=== PATIENT | female | born 1940 | race African-American/Black ===

== ENCOUNTER 2021-07-15 16:01 | Emergency (ER) | payer OTHER ==
--- OUTSIDE RECORDS SUMMARY | 2021-07-15 16:31 | XMS REPORT | Continuity of Care Document ---
:1940 Author Organization [facility] t Address [address] [place] [address] Care Team Providers Name Role Phone Dave_S Attending Clinician Unavailable Dave_S Admitting Clinician Unavailable Payers Payer Name Policy Type Policy Number Effective Date Expiration Date S lizeth [facility] [place] - [id number] 2021 [employer] 00:00:00 (MEDICARE REPLACEMENT/ADVANT AGE - HMO) Problems Condition Condition Condition Status Onset Resolution Last Treating Co mments Source Name Details Category Date Date Treatment Clinician Date SNOMED CT SNOMED CT Problem Active [facility] Concept Concept 7-04 Family 00:00: Practic 00 e 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-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 Rhinitis 00:00: Practi c 00 e Clinical Clinical Problem Active [facility] finding Finding 4-18 Family 00:00: Practic 00 e Renal Renal Problem Active [facility] disorder Disorder 8-01 Family due to Due to 00:00: Practic type 2 Type 2 00 e diabetes Diabetes mellitus Mellitus Peripheral Peripheral Problem Active [facility] vascular Vascular 8- Family disease Disease 00:00: Practic 00 e Chronic Chronic Problem Active [facility] kidney Kidney 8-01 Family disease Disease 00:00: Practic stage 3 Stage 3 00 e Chronic Chronic Problem Active [facility] kidney Kidney 8- Family disease Disease 00:00: Practic stage 3A Stage 3a 00 e Low back Low Back Problem Active 2018-05 [facility] pain Pain 2-18 Family 00:00: Practic 00 e Type 2 Type 2 Problem Active 2017-05 [facility] diabetes Diabetes 0-21 Family mellitus Mellitus 00:00: Practi c without without 00 e complicati Complicati on on Solitary Solitary Problem Active [facility] nodule of Nodule of 7-06 Fami ly lung Lung 00:00: Practic 00 e History of History of Problem Active 2016-05 [facility] polyp of Polyp of 1-11 Family colon Colon 00:00: Practic 00 e 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[facility] vein Vein 1-11 Family appearance Appearance 00:00: Pr actic - finding - Finding 00 e Fredrickso Fredrickso Problem Active 2015-05 [facility] n type IIa n Type IIa 2-17 [facility] 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 00 e Hyperchole Hyperchole Problem Active 2015-05 [facility] sterolemia sterolemia 2-17 Fa richard 00:00: Practic 00 e Disorder Disorder Problem Active 2015-05 [facility] of lung of Lung 0-17 Family 00:00: Practic 00 e Disorder Disorder Problem Active 2015-05 [facility] of of 0-17 Family respirator Respirator 00:00: Pr actic y system y System 00 e Anemia Anemia Problem Active [facility] 9-06 Family 00:00: Practic 00 e 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[facility] essential Essential 06-13 Fami ly hypertensi Hypertensi 00:00: Pr actic on on 00 e Hypertensi Hypertensi Problem Active [facility] ve ve 2-09 Family disorder Disorder 00:00: Practi c 00 e Rheumatoid Rheumatoid Problem Active [facility] arthritis Arthritis -09 Fami ly 00:00: Practic 00 e 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 Arterial 1-11 Family finding Finding 00:00: Practic 00 e Allergies, Adverse Reactions, Alerts Allergy Allergy Status Severity Reaction(s) Onset Inactive Treating Comm ents Source Name Type Date Date Clinician Meloxica Allergy Active [facility] m to 1-12 Family substanc 00:00: Practic e 00 e Codeine Allergy Active [facility] to 8-27 Family substanc 00:00: Practic e 00 e Social History Smoking Status Start Date Stop Date Source Current Every Day Smoker [facility] Family Practice Medications Ordered Filled Start Stop Current Ordering Indication Dosage Frequency Signature Comments Components Source Medication Medication Date Date Medication? Clinician (SIG) Name Name folic acid folic acid No folic acid [facility] metformin metformin No 1 TID metformin [facility] 500 mg 500 mg 500 mg Family tablet Take tablet Take tablet Practic 1 tablet 3 1 tablet 3 Take 1 e times a day times a day tablet 3 by oral by oral times a route. route. day by oral route. methotrexat methotrexat No methotrexa [facility] rosuvastati rosuvastati No 1 Q1D rosuvastat [facility] n 20 mg n 20 mg in 20 mg Famil y tablet Take tablet Take tablet Practic 1 tablet 1 tablet Take 1 e every day every day tablet by oral by oral every day route. route. by oral route. Immunizations Ordered Immunization Filled Immunization Date Status Commen ts Source Name Name COVID-19 COVID-19 2020-07-21 Completed [facility] (SARS-COV-2) (SARS-COV-2) 00:00:00 Practice vaccine, unspecified vaccine, unspecified Influenza, Influenza, 2018-02-12 Completed [facility] injectable, MDCK, injectable, MDCK, 00:00:00 Practice quadrivalent quadrivalent influenza, seasonal, influenza, seasonal, 2016-02-19 Completed [facility] injectable, injectable, 00:00:00 Practice preservative free preservative free pneumococcal pneumococcal 2015-08-28 Completed [facility] richard conjugate PCV 13 conjugate PCV 13 00:00:00 Pr actice influenza, seasonal, influenza, seasonal, 2008-02-23 Completed [facility] injectable injectable 00:00:00 Practice Vital Signs Vital Name Observation Time Observation Value Comments Source BP Diastolic 2021-05-03 00:00:00 68 mm[Hg] [facility] Height 2021-05-03 00:00:00 67 [in_i] [facility] BMI (Body Mass 2021-05-03 00:00:00 32.3 kg/m2 [facility] Index) Practice BP Systolic 2021-05-03 00:00:00 104 mm[Hg] [facility] Body Weight 2021-05-03 00:00:00 206 [lb_av] [facility] Procedures Procedure Date / Time Performed Performing Clinician Sourc e Complete Repair of [facility] Rotator Cuff [facility] Plan of Care Planned Activity Planned Date Details Comments Source Diagnostic Test 2021-05-03 CBC w/ auto diff [code = [facility] Pending 00:00:00 CBC w/ auto diff] Practice Diagnostic Test 2021-05-03 iron + TIBC + ferritin, [facility] Pending 00:00:00 serum [code = iron + Practic e TIBC + ferritin, serum] Diagnostic Test 2021-05-03 vitamin B12 + folate, [facility] Family Pending 00:00:00 serum or blood [code = Pract ice vitamin B12 + folate, serum or blood] Diagnostic Test 2021-05-03 retic count, blood [code [facility] Pending 00:00:00 = retic count, blood] Practi ce Diagnostic Test 2021-05-03 protein electrophoresis [facility] Pending 00:00:00 panel, serum or plasma Pract ice [code = protein electrophoresis panel, serum or plasma] Diagnostic Test 2021-05-03 electrophoresis panel, [facility] Family Pending 00:00:00 urine [code = Practice electrophoresis panel, urine] Diagnostic Test 2021-05-03 HbA1c (hemoglobin A1c), [facility] Pending 00:00:00 blood [code = HbA1c Practice (hemoglobin A1c), blood] Diagnostic Test 2021-05-03 microalbumin/creatinine, [facility] Pending 00:00:00 mass ratio, urine [code Prac kalen = microalbumin/creatinine, mass ratio, urine] Diagnostic Test 2021-05-03 CMP, serum or plasma Vill age Family Pending 00:00:00 [code = CMP, serum or Practi ce plasma] Encounters Start End Encounter Admission Attending Care Care Encounter Source Date/Time Date/Time Type Type Clinicians Facility Department ID 2021-06-13 2021-06-13 Outpatient Dave_S VFP VFP [id number] [facility] 03:35:00 03:35:00 [id number] Family Practic e 2021-05-14 2021-05-14 Outpatient Dave_S VFP VFP [id number] [facility] 06:33:00 06:33:00 [id number] Family Practic e 2021-05-03 2021-05-03 Outpatient Dave_S VFP VFP [id number] [facility] 01:15:00 01:15:00 [id number] Family Practic e 2021-05-03 2021-05-03 Outpatient Dave_S VFP VFP [id number] - [facility] 01:15:00 01:15:00 [id number] Family Practic e 2021-05-03 2021-05-03 Arthur VFP [place] - [id number] [facility] 00:00:00 00:00:00 Marisela Beth [facility] DO: [address] Medical - Pract ic Fm [address] [facility], (WAG) [place] [address] , Ph. 2021-04-25 2021-04-25 Outpatient Kirit_Marcia VFP VFP [id number] [facility] 06:57:00 06:57:00 [id number] Family Practic e Results This patient has no known results.
[2021-07-15 17:47] LABS: Absolute Lymphocytes (CBC) 1.1 K/uL (0.7-4.9); Hematocrit 33.9 % (36.0-45.0); Lymphocytes % 17.6 % (15.3-44.8); MPV 8.8 fL (7.6-11.3); RBC Red Blood Cell Count 3.81 M/uL (3.86-4.86)
[2021-07-15 17:54] LABS: Urine Blood Trace-lysed (Negative); Urine Glucose Negative (Negative); Urine Protein Negative (Negative); Urine Specific Gravity 1.025 (1.005-1.030)
[2021-07-15 18:04] LABS: ALT/SGPT 17 U/L (12-78); AST/SGOT 20 U/L (15-37); Albumin 3.1 g/dL (3.4-5.0); Alkaline Phosphatase 68 U/L (45-117); BUN Blood Urea Nitrogen 19 mg/dL (7-18); Bicarbonate 26 mmol/L (21-32); Bilirubin Direct < 0.1 mg/dL (0-0.2); Bilirubin Total 0.3 mg/dL (0.2-1.0); Glucose Level 103 mg/dL (74-106); Lipase 132 U/L (73-393); Potassium 4.4 mmol/L (3.5-5.1); Protein, Total 8.3 g/dL (6.4-8.2); Sodium Level 139 mmol/L (136-145)
[2021-07-15] MEDS ORDERED: NA CHLORIDE 0.9% 500 ML ONE (18:38)
--- NOTE | 2021-07-15 18:53 | RAD REPORT ---
EXAM DESCRIPTION: CT - Chest For Pe Angio - 07/15/2021 6:27 pm CLINICAL HISTORY: left sided flank pain, back pain COMPARISON: CT ABD PELVIS W CONTRAST dated 06/23/2014No comparisonsNo comparisons FINDINGS: Chest Wall: No suspicious thyroid nodules or pathologic lymphadenopathy. Lungs: No acute abnormality. Pleura: No significant effusions or pneumothorax. Mediastinum/brennan: No pathologic lymphadenopathy. Pulmonary arteries/Aorta: No filling defect identified. No aortic aneurysm. Enlarged main pulmonary a rtery may indicate pulmonary artery hypertension. Heart: No significant pericardial effusion. Normal heart size. Multi-vessel coronary artery disease. Mitral valve calcifications. Cardiomegaly. Upper abdomen: No acute abnormality. Bones: No acute abnormality. All CT scans are performed using dose optimization technique as appropriate and may include automated exposure control or mA/KV adjustment according to patient size. IMPRESSION: Negative for pulmonary embolism. No other acute findings are present within the chest.
[2021-07-15 18:54] LABS: Urine Bacteria >50 /HPF (<20)
[2021-07-15 18:55] LABS: Urine RBC <5 /HPF (NONE SEEN)
--- NOTE | 2021-07-15 18:56 | RAD REPORT ---
EXAM DESCRIPTION: CTAbdomen Pelvis W Contrast - 07/15/2021 6:27 pm CLINICAL HISTORY: FLANK PAIN COMPARISON: No comparisons TECHNIQUE: CT of the abdomen and pelvis was performed. All CT scans are performed using dose optimization technique as appropriate and may include automated exposure control or mA/KV adjustment according to patient size. FINDINGS: Lower chest: Mitral valve calcifications versus prosthesis. Cardiomegaly. Liver: No acute abnormality or suspicious lesions. Biliary: Cholecystectomy Stomach: No significant focal abnormality. Duodenum: No significant focal abnormality. Pancreas: No significant abnormality. Spleen: No significant abnormality. Adrenal: No suspicious lesions. Kidney/ureter: No hydronephrosis. No renal calculi. Retroperitoneum: No retroperitoneal adenopathy. Vascular: No aneurysm. Atherosclerosis . Bowel: No significant focal abnormality. No appendix identified. No secondary signs of acute appendic itis. Peritoneum: No ascites or free air. Bladder: Grossly unremarkable. Reproductive: No adnexal masses. Small calcified uterine fibroids. Bones: No acute fracture. Grade 1 anterolisthesis of L4 on L5. Other: n/a IMPRESSION: No acute intra-abdominal or pelvic finding. Incidental findings as noted above.
--- NOTE | 2021-07-15 19:32 | ER ---
Nurse's Notes [facility] Name: Elizabeth Bills Age: 80 yrs Sex: Female : 1940 Arrival Date: 07/15/2021 Time: 16:07 Bed 6 Private MD: Diagnosis: Flank Pain Presentation: 07/15 16:40 Chief complaint: Patient states: Left sided flank pain that is radiating to the back ww that started about 2 weeks ago. Also having right sided neck pain. Chief complaint:. Coronavirus screen: Vaccine status: Patient reports receiving the 2nd dose of the covid vaccine. Client denies travel out of the [place] in the last 14 days. Ebola Screen: Patient denies travel to an Ebola-affected area in the 21 days before illness onset. Initial Sepsis Screen: Does the patient meet any 2 criteria? No. Patient's initial sepsis screen is negative. Does the patient have a suspected source of infection? No. Patient's initial sepsis screen is negative. Risk Assessment: Do you want to hurt yourself or someone else? Patient reports no desire to harm self or others. Onset of symptoms is unknown. 16:40 Method Of Arrival: Ambulatory ww 16:40 Acuity: LYNNETTE 3 ww Triage Assessment: 16:42 General: Appears in no apparent distress. Behavior is calm, cooperative. Pain: ww Complains of pain in scalp and abdomen. Neuro: No deficits noted. Level of Consciousness is awake, alert, obeys commands, Oriented to person, place, time, situation, Moves all extremities. Gait is steady, Speech is normal. Cardiovascular: Patient's skin is warm and dry. Respiratory: Airway is patent Respiratory effort is even, unlabored, Respiratory pattern is regular, symmetrical. GI: No signs and/or symptoms were reported involving the gastrointestinal system. : No signs and/or symptoms were reported regarding the genitourinary system. Derm: No signs and/or symptoms reported regarding the dermatologic system. Historical: - Allergies: 16:42 Codeine; ww - Home Meds: 16:42 Metformin Oral [Active]; ww - PMHx: 16:42 Rheumatoid arthritis; Diabetes mellitus; ww - PSHx: 16:42 tubual; Appendectomy; rotator cuff; Cholecystectomy; ww - Immunization history:: Adult Immunizations up to date. - Social history:: Smoking status: Patient reports the use of cigarette tobacco products, smokes one-half pack cigarettes per day. Screenin:44 Abuse screen: Denies threats or abuse. Denies injuries from another. Nutritional ww screening: No deficits noted. Tuberculosis screening: No symptoms or risk factors identified. 17:30 Fall Risk IV access (20 points). Total Larkin Fall Scale indicates No Risk (0-24 pts). jl7 Assessment: 17:00 General: Appears in no apparent distress. uncomfortable, Behavior is calm, cooperative, jl7 appropriate for age. Pain: Complains of pain in posterior aspect of left lateral abdomen Pain does not radiate. Pain currently is 8 out of 10 on a pain scale. Pain: Complains of pain in right sternocleidomastoid Pain does not radiate. Pain currently is 8 out of 10 on a pain scale. Neuro: Level of Consciousness is awake, alert, obeys commands, Oriented to person, place, time, situation. Cardiovascular: Patient's skin is warm and dry. Respiratory: Airway is patent Respiratory effort is even, unlabored, Respiratory pattern is regular, symmetrical, Denies cough, pain with respiration. GI: Patient currently denies diarrhea, nausea, vomiting. : Denies burning with urination, pain with urination. Derm: Skin is pink, warm \T\ dry. 18:00 Reassessment: Patient appears in no apparent distress at this time. No changes from jl7 previously documented assessment. Patient and/or family updated on plan of care and expected duration. Pain level reassessed. Patient is alert, oriented x 3, equal unlabored respirations, skin warm/dry/pink. 18:25 Reassessment: Pt returned from CT. jl7 Vital Signs: 16:40 BP 132 / 60; Pulse 95; Resp 18; Temp 97.7; Pulse Ox 99% ; Weight 98.88 kg; Height 5 ft. ww 6 in. (167.64 cm); Pain 8/10; 18:41 BP 134 / 60; Pulse 82; Resp 15; Pulse Ox 100% ; jl7 20:09 BP 132 / 72; Pulse 84; Resp 18; Pulse Ox 100% on R/A; kd3 16:40 Body Mass Index 35.18 (98.88 kg, 167.64 cm) ww ED Course: 16:07 Patient arrived in ED. ds1 16:42 Triage completed. ww 16:42 Arm band placed on right wrist. ww 16:52 Patient placed in an exam room, on a stretcher. ll1 17:12 Xiomy Stallworth, GIOVANNI is Primary Nurse. jl7 17:20 Leandro Turcios PA is PHCP. jmm 17:20 Isaac Lora MD is Attending Physician. jmm 17:30 Patient has correct armband on for positive identification. Call light in reach. jl7 17:30 Initial lab(s) drawn, by me, sent to lab. Urine collected: clean catch specimen, jl7 cloudy, keila colored. Inserted saline lock: 20 gauge in right antecubital area, using aseptic technique. Blood collected. 18:27 CT Abd/Pelvis - IV Contrast Only In Process Unspecified. EDMS 18:27 CT Chest For PE Angio In Process Unspecified. EDMS 20:09 No provider procedures requiring assistance completed. IV discontinued, intact, kd3 bleeding controlled, No redness/swelling at site. Pressure dressing applied. Administered Medications: 18:01 Not Given (Patient Refused): morphine 2 mg IVP once; RASS on ADMIN: Combtv4, Very jl7 Agttd3, Agttd2, Rstlss1, AlertClm0, Drwsy-1, Lt Sdtn-2, Mod Sdtn-3, Dp Sdtn-4, UnArsble-5 18:01 Not Given (Patient Refused): Zofran (Ondansetron) 4 mg IVP once; over 2 minutes jl7 18:47 Drug: NS 0.9% 500 ml Route: IV; Rate: bolus; Site: right antecubital; jl7 20:11 Follow up: IV Status: Completed infusion kd3 20:08 Drug: Tylenol 650 mg Route: PO; kd3 20:11 Follow up: Response: No adverse reaction kd3 20:08 Drug: Flexeril (cyclobenzaprine) 10 mg Route: PO; kd3 20:11 Follow up: Response: No adverse reaction kd3 Outcome: 19:31 Discharge ordered by . jm 20:09 Discharged to home ambulatory. kd3 20:09 Condition: stable 20:09 Discharge instructions given to patient, Instructed on discharge instructions, follow up and referral plans. medication usage, Demonstrated understanding of instructions, follow-up care, medications, Prescriptions given X 2. 20:12 Patient left the ED. kd3 Addendum: 07/18/2021 12:16 Addendum: Culture Results: Positive urine culture. Bacteria is resistant to, has a a5 intermediate sensitivity, or is not tested against prescribed antibiotics. Report given to GLENDA for further evaluation and then to brick chimney supervisor for follow up with patient. Phone call Attempt #1 called to check on patient and left voicemail. Signatures: Dispatcher [employer] EDMS Leandro Turcios PA PA jmm Sanford, Demi ds1 Juliana Roberson, RN RN aa5 Xiomy Stallworth RN RN jl7 Armaan Maynard RN RN ll1 Lily Chung RN RN kd3 Rola Ortega, RN RN ww Corrections: (The following items were deleted from the chart) 07/15 16:45 16:40 Pulse 95bpm; Resp 18bpm; Pulse Ox 99%; Temp 97.7F; 98.88 kg; Height 5 ft. 6 in.; ww BMI: 35.1; Pain 8/10; ww 16:45 16:40 Acuity: LYNNETTE 4 ww ww
--- NOTE | 2021-07-15 19:33 | EDPHYS ---
Physician Documentation [facility] Name: Elizabeth Bills Age: 80 yrs Sex: Female : 1940 Arrival Date: 07/15/2021 Time: 16:07 Bed 6 Private MD: ANUEL Physician Isaac Lora HPI: 07/15 17:25 This 80 yrs old Black Female presents to ER via Ambulatory with complaints of Side jmm Pain, Neck Pain. 17:25 The patient complains of pain in the left flank. Onset: The symptoms/episode jmm began/occurred gradually, 1 week(s) ago. Modifying factors: The symptoms are alleviated by nothing. the symptoms are aggravated by movement, palpation/percussion. Associated signs and symptoms: Pertinent negatives: diarrhea, dizziness, fever, headache, hematuria, nausea, pain radiating to the lower extremities, vomiting. The patient has not experienced similar symptoms in the past. Historical: - Allergies: 16:42 Codeine; ww - Home Meds: 16:42 Metformin Oral [Active]; ww - PMHx: 16:42 Rheumatoid arthritis; Diabetes mellitus; ww - PSHx: 16:42 tubual; Appendectomy; rotator cuff; Cholecystectomy; ww - Immunization history:: Adult Immunizations up to date. - Social history:: Smoking status: Patient reports the use of cigarette tobacco products, smokes one-half pack cigarettes per day. ROS: 17:25 Constitutional: Negative for fever, chills, and weight loss, Cardiovascular: Negative jmm for chest pain, palpitations, and edema, Respiratory: Negative for shortness of breath, cough, wheezing, and pleuritic chest pain, Abdomen/GI: Negative for abdominal pain, nausea, vomiting, diarrhea, and constipation. 17:25 Back: Positive for pain with movement. 17:25 All other systems are negative. Exam: 17:25 Constitutional: This is a well developed, well nourished patient who is awake, alert, jmm and in no acute distress. Head/Face: atraumatic. Eyes: EOMI, no conjunctival erythema appreciated ENT: Moist Mucus Membranes Neck: Trachea midline, Supple Chest/axilla: Normal chest wall appearance and motion. Cardiovascular: Regular rate and rhythm. No edema appreciated Respiratory: Normal respirations, no respiratory distress appreciated Abdomen/GI: Non distended, soft 17:25 Skin: General appearance color normal MS/ Extremity: Moves all extremities, no obvious deformities appreciated, no edema noted to the lower extremities Neuro: Awake and alert Psych: Behavior is normal, Mood is normal, Patient is cooperative and pleasant 17:25 Back: CVA tenderness, that is mild, is noted on the left. Vital Signs: 16:40 BP 132 / 60; Pulse 95; Resp 18; Temp 97.7; Pulse Ox 99% ; Weight 98.88 kg; Height 5 ft. ww 6 in. (167.64 cm); Pain 8/10; 18:41 BP 134 / 60; Pulse 82; Resp 15; Pulse Ox 100% ; jl7 20:09 BP 132 / 72; Pulse 84; Resp 18; Pulse Ox 100% on R/A; kd3 16:40 Body Mass Index 35.18 (98.88 kg, 167.64 cm) ww MDM: 17:25 Patient medically screened. ludwig 19:31 Data reviewed: vital signs, nurses notes. Counseling: I had a detailed discussion with richy the patient and/or guardian regarding: the historical points, exam findings, and any diagnostic results supporting the discharge/admit diagnosis, lab results, radiology results, the need for outpatient follow up, to return to the emergency department if symptoms worsen or persist or if there are any questions or concerns that arise at home. ED course: She is alert nontoxic in appearance NAD. No signs of respiratory distress. UA did reveal signs of urinary tract infection. Will treat with oral antibiotics. Patient otherwise given strict return precautions. Patient understood agrees plan of care. 07/15 17:26 Order name: Basic Metabolic Panel; Complete Time: 18:05 [facility] 07/15 17:26 Order name: CBC with Diff; Complete Time: 17:54 [facility] 07/15 17:26 Order name: Hepatic Function; Complete Time: 18:05 [facility] 07/15 17:26 Order name: Lipase; Complete Time: 18:05 [facility] 07/15 17:54 Order name: Urine Dipstick-Ancillary; Complete Time: 18:01 [facility] 07/15 17:58 Order name: Urine Microscopic Only ll1 07/15 17:27 Order name: CT Chest For PE Angio; Complete Time: 19:00 [facility] 07/15 17:59 Order name: Urine Microscopic Only; Complete Time: 19:00 [facility] 07/15 18:02 Order name: CT Abd/Pelvis - IV Contrast Only; Complete Time: 19:00 [facility] 07/15 18:56 Order name: Urine Culture [facility] 07/15 17:26 Order name: IV Saline Lock; Complete Time: 18:01 [facility] 07/15 17:26 Order name: Labs collected and sent; Complete Time: 18:01 [facility] 07/15 17:26 Order name: Urine Dipstick-Ancillary (obtain specimen); Complete Time: 18:01 [facility] Administered Medications: 18:01 Not Given (Patient Refused): morphine 2 mg IVP once; RASS on ADMIN: Combtv4, Very jl7 Agttd3, Agttd2, Rstlss1, AlertClm0, Drwsy-1, Lt Sdtn-2, Mod Sdtn-3, Dp Sdtn-4, UnArsble-5 18:01 Not Given (Patient Refused): Zofran (Ondansetron) 4 mg IVP once; over 2 minutes jl7 18:47 Drug: NS 0.9% 500 ml Route: IV; Rate: bolus; Site: right antecubital; jl7 20:11 Follow up: IV Status: Completed infusion kd3 20:08 Drug: Tylenol 650 mg Route: PO; kd3 20:11 Follow up: Response: No adverse reaction kd3 20:08 Drug: Flexeril (cyclobenzaprine) 10 mg Route: PO; kd3 20:11 Follow up: Response: No adverse reaction kd3 Disposition Summary: 07/15/21 19:31 Discharge Ordered Location: Home [facility] Condition: Stable [facility] Diagnosis - Flank Pain [facility] Followup: [facility] - With: Private Physician - When: 2 - 3 days - Reason: Recheck today's complaints, Continuance of care, Re-evaluation by your physician Discharge Instructions: - Discharge Summary Sheet [facility] - Flank Pain, Adult [facility] - Urinary Tract Infection, Adult [facility] Forms: - Medication Reconciliation Form [facility] - Thank You Letter [facility] - Antibiotic Education [facility] - Prescription Opioid Use [facility] Prescriptions: - Cephalexin 500 mg Oral Capsule - take 1 capsule by ORAL route every 8 hours for 10 days; 30 capsule; Refills: 0, [facility] Product Selection Permitted - orphenadrine citrate 100 mg Oral Tablet Sustained Release - take 1 tablet by ORAL route 2 times per day As needed; 20 tablet; Refills: 0, jmm Product Selection Permitted Signatures: Dispatcher [employer] Leandro Braga PA PA jmm Leal, Jahala, RN RN jl7 Lily Chung, RN RN kd3 Rola Ortega, RN RN ww
[2021-07-15] MEDS ORDERED: ACETAMINOPHEN 325 MG TABLET ONE (20:03)
[2021-07-15] MEDS ORDERED: CYCLOBENZAPRINE 10 MG TAB ONE (20:03)
[2021-07-15 20:50] VITALS: TEMP 97.7
[2021-07-15 20:51] VITALS: O2SAT 100
[2021-07-15 20:52] VITALS: BP 132/72
== END 2021-07-15 20:12 | disposition home or self-care (01) ==
LOC: ER 16:01
DX: R10.9 Unspecified abdominal pain (principal); E11.9 Type 2 diabetes mellitus without complications; F17.210 Nicotine dependence, cigarettes, uncomplicated; Z88.5 Allergy status to narcotic agent
CPT/HCPCS: 87088; 85025; 87086; 80048; 36415; 80076; 87077; 87186; 83690; 71275; 74177; 96360; 99284; Q9967; J7040; 81003; 81015

== ENCOUNTER 2022-05-11 11:23 | Emergency (ER) | payer OTHER ==
--- OUTSIDE RECORDS SUMMARY | 2022-05-11 11:26 | XMS REPORT | Continuity of Care Document ---
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 tom immune Immune 1-03 Family deficiency Deficiency 00:00: Pr actic disorder Disorder 00 e Dyspnea Dyspnea Problem Active 2021-05 [facility] 1-03 Family 00:00: Practic 00 e Type 2 Type 2 Problem Active [facility] diabetes Diabetes 4-07 Family mellitus Mellitus 00:00: Practi c with with 00 e peripheral Peripheral angiopathy Angiopathy SNOMED CT SNOMED CT Problem Active Ronit luxe Concept Concept 7-04 Family 00:00: Practic 00 e 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-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 Rhinitis 00:00: Practi c 00 e Clinical Clinical Problem Active [facility] finding Finding 4-18 Family 00:00: Practic 00 e Renal Renal Problem Active [place] disorder Disorder 8- Family due to Due to 00:00: Practic type 2 Type 2 00 e diabetes Diabetes mellitus Mellitus Peripheral Peripheral Problem Active [facility] vascular Vascular 8- Family disease Disease 00:00: Practic 00 e Chronic Chronic Problem Active [facility] kidney Kidney 8- Family disease Disease 00:00: Practic stage 3A Stage 3a 00 e Low back Low Back Problem Active 2018-05 [facility] pain Pain 2-18 Family 00:00: Practic 00 e Screening Screening Problem Active 2018-05 Ronit medina for 1-02 Family malignant Malignant 00:00: Prac tic neoplasm Neoplasm 00 e of of respirator Respirator y tract y Tract Solitary Solitary Problem Active [facility] nodule of Nodule of 7-06 Fami ly lung Lung 00:00: Practic 00 e History of History of Problem Active 2016-05 [facility] polyp of Polyp of 1-11 Family colon Colon 00:00: Practic 00 e 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 1-11 Family appearance Appearance 00:00: Pr actic - finding - Finding 00 e Hyperchole Hyperchole Problem Active 2015-05 [facility] sterolemia sterolemia 2-17 Fa richard 00:00: Practic 00 e Disorder Disorder Problem Active 2015-05 [facility] of lung of Lung 0-17 Family 00:00: Practic 00 e Disorder Disorder Problem Active 2015-05 [facility] of of 0-17 Family respirator Respirator 00:00: Pr actic y system y System 00 e Anemia Anemia Problem Active [place] 9-06 Family 00:00: Practic 00 e 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[facility] essential Essential 2-09 Fami ly hypertensi Hypertensi 00:00: Pr actic on on 00 e Hypertensi Hypertensi Problem Active [facility] ve ve 2-09 Family disorder Disorder 00:00: Practi c 00 e Rheumatoid Rheumatoid Problem Active [facility] arthritis Arthritis 2-09 Fami ly 00:00: Practic 00 e 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 Arterial 1-11 Family finding Finding 00:00: Practic 00 e Allergies, Adverse Reactions, Alerts Allergy Allergy Status Severity Reaction(s) Onset Inactive Treating Comm ents Source Name Type Date Date Clinician Meloxica Allergy Active [facility] m to 1-12 Family substanc 00:00: Practic e 00 e Codeine Allergy Active [facility] to 8-27 Family substanc 00:00: Practic e 00 e Social History Smoking Status Start Date Stop Date Source Heavy Tobacco Smoker [facility] Practice Medications Ordered Filled Start Stop Current Ordering Indication Dosage Frequency Signature Comments Components Source Medication Medication Date Date Medication? Clinician (SIG) Name Name albuterol albuterol 2021-05 No albuterol [place] sulfate 2.5 sulfate 2.5 1-03 sulfate Family mg/3 mL mg/3 mL 14:46: 2.5 mg/3 Pra ctic (0.083 %) (0.083 %) 00 mL (0.083 e solution solution %) for for solution nebulizatio nebulizatio for nInhale 3 nInhale 3 nebulizati mL by mL by onInhale 3 nebulizatio nebulizatio mL by n route 15 n route 15 nebulizati minutes minutes on route prior to prior to 15 minutes spirometry spirometry prior to spirometry losartan 25 losartan 25 No losartan [place] mg tablet mg tablet 25 mg Fami ly TAKE 1 TAKE 1 tablet Practic TABLET BY TABLET BY TAKE 1 e MOUTH ONCE MOUTH ONCE TABLET BY DAILY DAILY MOUTH ONCE DAILY metformin metformin No metformin [facility] ER 500 mg ER 500 mg ER 500 mg Family 24 hr 24 hr 24 hr Practic tablet,exte tablet,exte tablet,ext e nded nded ended release release release TAKE 1 TAKE 1 TAKE 1 TABLET BY TABLET BY TABLET BY MOUTH THREE MOUTH THREE MOUTH TIMES DAILY TIMES DAILY THREE WITH MEALS WITH MEALS TIMES DAILY WITH MEALS methotrexat methotrexat No methotrexa [facility] e e te Family Practic e methotrexat methotrexat No methotrexa [facility] e sodium e sodium te sodium Fa richard 2.5 mg 2.5 mg 2.5 mg Practic tablet TAKE tablet TAKE tablet e 5 TABLETS 5 TABLETS TAKE 5 BY MOUTH BY MOUTH TABLETS BY ONCE A WEEK ONCE A WEEK MOUTH ONCE A WEEK multivitami multivitami No multivitam [facility] n n in Family Practic e Chantilly 3 Chantilly 3 No Chantilly 3 Villag e Family Practic e orphenadrin orphenadrin No orphenadri [place] e citrate e citrate ne citrate Family ER 100 mg ER 100 mg ER 100 mg Practic tablet,exte tablet,exte tablet,ext e nded nded ended release release release TAKE 1 TAKE 1 TAKE 1 TABLET BY TABLET BY TABLET BY MOUTH TWICE MOUTH TWICE MOUTH DAILY DAILY TWICE NEEDED NEEDED DAILY NEEDED rosuvastati rosuvastati No rosuvastat [facility] n 20 mg n 20 mg in 20 mg Famil y tablet TAKE tablet TAKE tablet Practic 1 TABLET BY 1 TABLET BY TAKE 1 e MOUTH ONCE MOUTH ONCE TABLET BY DAILY DAILY MOUTH ONCE DAILY Vitamin C Vitamin C No Vitamin C [facility] 1,000 mg 1,000 mg 1,000 mg Fam mounika tablet Take tablet Take tablet Practic by oral by oral Take by e route. route. oral route. Vitamin D3 Vitamin D3 No Vitamin D3 [facility] albuterol albuterol No albuterol [facility] sulfate 2.5 sulfate 2.5 sulfate Family mg/3 mL mg/3 mL 2.5 mg/3 Pract ic (0.083 %) (0.083 %) mL (0.083 e solution solution %) for for solution nebulizatio nebulizatio for n Inhale 3 n Inhale 3 nebulizati mL by mL by on Inhale nebulizatio nebulizatio 3 mL by n route 15 n route 15 nebulizati minutes minutes on route prior to prior to 15 minutes spirometry spirometry prior to spirometry aspirin 81 aspirin 81 No 1 Q1D aspirin 81 [facility] mg chewable mg chewable mg F amily tablet Chew tablet Chew chewable Practic 1 tablet 1 tablet tablet e every day every day Chew 1 by oral by oral tablet route. route. every day by oral route. Cinnamon Cinnamon No Cinnamon Ronit tom 500 mg 500 mg 500 mg Family capsule capsule capsule Practi c Take by Take by Take by e oral route. oral route. oral route. folic acid folic acid No folic acid [facility] 1 mg tablet 1 mg tablet 1 mg F amily TAKE 1 TAKE 1 tablet Practic TABLET BY TABLET BY TAKE 1 e MOUTH ONCE MOUTH ONCE TABLET BY DAILY DAILY MOUTH ONCE DAILY losartan 25 losartan 25 No losartan [facility] mg tablet mg tablet 25 mg Fami ly Take 1 Take 1 tablet Practic tablet by tablet by Take 1 e mouth once mouth once tablet by daily daily mouth once daily metformin metformin No metformin [facility] ER 500 mg ER 500 mg ER 500 mg Family tablet,exte tablet,exte tablet,ext Practic nded nded ended e release 24 release 24 release 24 hr TAKE 1 hr TAKE 1 hr TAKE 1 TABLET BY TABLET BY TABLET BY MOUTH THREE MOUTH THREE MOUTH TIMES DAILY TIMES DAILY THREE WITH MEALS WITH MEALS TIMES DAILY WITH MEALS methotrexat methotrexat No methotrexa [facility] e sodium e sodium te sodium Fa richard 2.5 mg 2.5 mg 2.5 mg Practic tablet TAKE tablet TAKE tablet e 5 TABLETS 5 TABLETS TAKE 5 BY MOUTH BY MOUTH TABLETS BY ONCE A WEEK ONCE A WEEK MOUTH ONCE A WEEK multivitami multivitami No multivitam [facility] n n in Family Practic e Chantilly 3 Chantilly 3 No [place] 3 Vill[facility] e Family Practic e rosuvastati rosuvastati No rosuvastat [facility] n 20 mg n 20 mg in 20 mg Famil y tablet TAKE tablet TAKE tablet Practic 1 TABLET BY 1 TABLET BY TAKE 1 e MOUTH ONCE MOUTH ONCE TABLET BY DAILY DAILY MOUTH ONCE DAILY Vitamin C Vitamin C No Vitamin C [facility] 1,000 mg 1,000 mg 1,000 mg Fam mounika tablet Take tablet Take tablet Practic by oral by oral Take by e route. route. oral route. Vitamin D3 Vitamin D3 No Vitamin D3 [facility] Family Practic e aspirin 81 aspirin 81 No 1 Q1D aspirin 81 [facility] mg chewable mg chewable mg F amily tablet Chew tablet Chew chewable Practic 1 tablet 1 tablet tablet e every day every day Chew 1 by oral by oral tablet route. route. every day by oral route. cephalexin cephalexin No cephalexin [facility] 500 mg 500 mg 500 mg Family capsule capsule capsule Practi c TAKE 1 TAKE 1 TAKE 1 e CAPSULE BY CAPSULE BY CAPSULE BY MOUTH EVERY MOUTH EVERY MOUTH 8 HOURS FOR 8 HOURS FOR EVERY 8 10 DAYS 10 DAYS HOURS FOR 10 DAYS Cinnamon Cinnamon No Cinnamon Ronit tom 500 mg 500 mg 500 mg Family capsule capsule capsule Practi c Take by Take by Take by e oral route. oral route. oral route. fluticasone fluticasone No fluticason [facility] propionate propionate e Fam mounika 50 50 propionate Practic mcg/actuati mcg/actuati 50 e on nasal on nasal mcg/actuat spray,suspe spray,suspe ion nasal nsion nsion spray,susp ension folic acid folic acid No folic acid [facility] Family Practic e folic acid folic acid No folic acid [facility] 1 mg tablet 1 mg tablet 1 mg F amily TAKE 1 TAKE 1 tablet Practic TABLET BY TABLET BY TAKE 1 e MOUTH ONCE MOUTH ONCE TABLET BY DAILY DAILY MOUTH ONCE DAILY Immunizations Ordered Immunization Filled Immunization Date Status Commen Source Name Name pneumococcal pneumococcal 2021-08-09 Completed [facility] richard polysaccharide PPV23 polysaccharide PPV23 13:44:02 Practice pneumococcal pneumococcal 2021-08-09 Completed [facility] polysaccharide PPV23 polysaccharide PPV23 13:44:02 Practice COVID-19, mRNA, COVID-19, mRNA, 2021-06-01 Completed [facility] LNP-S, PF, 30 mcg/0.3 LNP-S, PF, 30 mcg/0.3 00:00:00 Practice mL dose mL dose (LiveLeaf) (LiveLeaf) COVID-19, mRNA, COVID-19, mRNA, 2021-06-01 Completed [facility] Family LNP-S, PF, 30 mcg/0.3 LNP-S, PF, 30 mcg/0.3 00:00:00 Practice mL dose mL dose (LiveLeaf) (LiveLeaf) COVID-19 (SARS-COV-2) COVID-19 (SARS-COV-2) 2020-07-21 Completed [facility] vaccine, unspecified vaccine, unspecified 00:00:00 Practice COVID-19 (SARS-COV-2) COVID-19 (SARS-COV-2) 2020-07-21 Completed [facility] vaccine, unspecified vaccine, unspecified 00:00:00 Practice Influenza, Influenza, 2018-02-12 Completed [facility] injectable, MDCK, injectable, MDCK, 00:00:00 Practice quadrivalent quadrivalent Influenza, Influenza, 2018-02-12 Completed [facility] injectable, MDCK, injectable, MDCK, 00:00:00 Practice quadrivalent quadrivalent influenza, seasonal, influenza, seasonal, 2016-02-19 Completed [facility] injectable, injectable, 00:00:00 Practice preservative free preservative free influenza, seasonal, influenza, seasonal, 2016-02-19 Completed [facility] injectable, injectable, 00:00:00 Practice preservative free preservative free pneumococcal pneumococcal 2015-08-28 Completed [facility] conjugate PCV 13 conjugate PCV 13 00:00:00 Pr actice pneumococcal pneumococcal 2015-08-28 Completed [facility] conjugate PCV 13 conjugate PCV 13 00:00:00 Pr actice influenza, seasonal, influenza, seasonal, 2008-02-23 Completed [facility] injectable injectable 00:00:00 Practice influenza, seasonal, influenza, seasonal, 2008-02-23 Completed [facility] injectable injectable 00:00:00 Practice Vital Signs Vital Name Observation Time Observation Value Comments Source BP Diastolic 2022-03-07 00:00:00 61 mm[Hg] [facility] Height 2022-03-07 00:00:00 67 [in_i] [facility] BMI (Body Mass 2022-03-07 00:00:00 30.2 kg/m2 [facility] Family Index) Practice BP Systolic 2022-03-07 00:00:00 111 mm[Hg] [facility] Body Weight 2022-03-07 00:00:00 192.8 [lb_av] [facility] Practice Body Weight 2021-08-09 00:00:00 199.8 [lb_av] [facility] Practice BP Diastolic 2021-08-09 00:00:00 65 mm[Hg] [facility] Height 2021-08-09 00:00:00 67 [in_i] [facility] BMI (Body Mass 2021-08-09 00:00:00 31.3 kg/m2 [facility] Index) Practice BP Systolic 2021-08-09 00:00:00 105 mm[Hg] [facility] BP Diastolic 2021-05-03 00:00:00 68 mm[Hg] [facility] Height 2021-05-03 00:00:00 67 [in_i] [facility] Practice BMI (Body Mass 2021-05-03 00:00:00 32.3 kg/m2 [facility] Index) Practice BP Systolic 2021-05-03 00:00:00 104 mm[Hg] [facility] Body Weight 2021-05-03 00:00:00 206 [lb_av] [facility] Procedures Procedure Date / Time Performed Performing Clinician [facility] e LDCT, chest, for lung 2022-03-07 00:00:00 [facility] cancer screening Practice EVALUATION OF WHEEZING 2022-03-07 00:00:00 [facility] Practice MAMMO, screening, 2021-08-09 00:00:00 [facility] richard digital, bilateral Practice Complete Repair of [facility] Famil y Rotator Cuff Practice Gallbladder Surgery [facility] ly Practice Plan of Care Planned Activity Planned Date Details Comments Source Diagnostic Test Pending 2022-03-07 HbA1c (hemoglobin [facility] 00:00:00 A1c), blood [code Practice = HbA1c (hemoglobin A1c), blood] Diagnostic Test Pending 2022-03-07 PTH (parathyroid [facility] 00:00:00 hormone), intact, Practice serum or plasma [code = PTH (parathyroid hormone), intact, serum or plasma] Diagnostic Test Pending 2022-03-07 BMP, serum or [facility] Family 00:00:00 plasma [code = Practice BMP, serum or plasma] Diagnostic Test Pending 2022-03-07 iron + TIBC + Ronit tom Family 00:00:00 ferritin, serum Practice [code = iron + TIBC + ferritin, serum] Diagnostic Test Pending 2022-03-07 CBC w/ auto diff [facility] 00:00:00 [code = CBC w/ Practice auto diff] Instructions [facility] Practice Encounters Start End Encounter Admission Attending Care Care Encounter Source Date/Time Date/Time Type Type Clinicians Facility Department ID 2022-03-19 2022-03-19 Outpatient Dave_S VFP VFP [id number] [facility] 00:00:00 00:00:00 [id number] Family Practic e 2022-03-07 2022-03-07 Outpatient Dave_S VFP VFP [id number] [facility] 00:00:00 00:00:00 [id number] Family Practic e 2022-03-07 2022-03-07 Arthur VFP [place] - [id number] [facility] 00:00:00 00:00:00 Lian Cruz [facility] DO: 130[address] Medical - Pract ic [address] [place] [address] , Ph. 2021-08-29 2021-08-29 Outpatient Dave_S VFP VFP [id number] [facility] 00:00:00 00:00:00 [id number] Family Practic e 2021-08-09 2021-08-09 Outpatient Dave_S VFP VFP [id number] [facility] 01:47:00 01:47:00 [id number] Family Practic e 2021-08-09 2021-08-09 Arthur VFP [place] - [id number] [facility] 00:00:00 00:00:00 Marisela Beth [facility] DO: 1309 Medical - Pract [facility] [address] [place] [address] , Ph. 2021-06-13 2021-06-13 Outpatient Dave_S VFP VFP [id number] [facility] 03:35:00 03:35:00 [id number] Family Practic e 2021-05-14 2021-05-14 Outpatient Dave_S VFP VFP [id number] - [facility] 06:33:00 06:33:00 [id number] Family Practic e 2021-05-03 2021-05-03 Outpatient Dave_S VFP VFP [id number] [facility] 01:15:00 01:15:00 [id number] Family Practic e 2021-05-03 2021-05-03 Outpatient Dave_S VFP VFP [id number] [facility] 01:15:00 01:15:00 [id number] Family Practic e 2021-05-03 2021-05-03 Arthur VFP [place] - [id number] [facility] 00:00:00 00:00:00 Marisela Lian [facility] DO: [address] Medical - Pract ic Fm [address] [facility], ([facility]) [place] [address] , Ph. 2021-04-25 2021-04-25 Outpatient Dave_S VFP VFP [id number] - [facility] 06:57:00 06:57:00 [id number] Family Practic e Results This patient has no known results.
[2022-05-11 12:23] LABS: Absolute Lymphocytes (CBC) 0.8 K/uL (0.7-4.9); Hematocrit 31.1 % (36.0-45.0); Lymphocytes % 17.3 % (15.3-44.8); MPV 8.9 fL (7.6-11.3); RBC Red Blood Cell Count 3.41 M/uL (3.86-4.86)
[2022-05-11 12:38] LABS: Albumin 2.9 g/dL (3.4-5.0); Bilirubin Total 0.4 mg/dL (0.2-1.0); Potassium 4.6 mmol/L (3.5-5.1); Protein, Total 7.6 g/dL (6.4-8.2)
[2022-05-11 12:49] LABS: Platelet Estimate ADEQ; White Blood Cell Scan OK (OK)
[2022-05-11 12:58] LABS: Blood Morphology Comment NOTED (NOT SEEN); Target Cells FEW
--- NOTE | 2022-05-11 13:10 | RAD REPORT ---
EXAM DESCRIPTION: CTAbdomen Pelvis W Contrast - 05/11/2022 12:54 pm CLINICAL HISTORY: right groin/abd/hip pain COMPARISON: Abdomen Pelvis W Contrast dated 07/15/2021; Chest For Pe Angio dated 07/15/2021 TECHNIQUE: CT of the abdomen and pelvis was performed with IV contrast. All CT scans are performed using dose optimization technique as appropriate and may include automated exposure control or mA/KV adjustment according to patient size. FINDINGS: Lower chest: Mitral annular and coronary artery calcifications. Trace pleural effusions. N ew 10 mm right lower lobe pulmonary nodule. Liver: No acute abnormality or suspicious lesions. Biliary: No biliary ductal dilatation. Cholecystectomy . Stomach: No significant focal abnormality. Duodenum: No significant focal abnormality. Pancreas: No significant abnormality. Spleen: No significant abnormality. Adrenal: No suspicious lesions. Kidney/ureter: No hydronephrosis. No renal calculi. Retroperitoneum: No retroperitoneal adenopathy. Vascular: No aneurysm. Bowel: No significant focal abnormality. Peritoneum: Enlarged right inguinal lymph and external iliac chain lymph nodes. The largest lymph nod e in the right inguinal region measures 16 millimeters in short axis. Bladder: Grossly unremarkable. Reproductive: No adnexal masses. Several calcified uterine fibroids. Bones: No acute fracture. Other: n/a IMPRESSION: No acute intra-abdominal or pelvic finding. New right lower lobe pulmonary nodule and enlarged right inguinal lymph nodes. The etiology is uncert ain. Consider right inguinal lymph node biopsy which could be performed under ultrasound if clinicall y indicated.
--- NOTE | 2022-05-11 13:33 | EDPHYS ---
Physician Documentation [facility] Name: Elizabeth Bills Age: 81 yrs Sex: Female : 1940 Arrival Date: 05/11/2022 Time: 11:29 Bed 7 Private MD: ED Physician Chandana Umana HPI: 05/11 12:07 This 81 yrs old Black Female presents to ER via Wheelchair with complaints of Groin rn Pain, side pain. 12:07 The patient or guardian reports decreased range of motion, pain. that occurred at an rn unknown site, sustained from unknown reason, There is no obvious deformity, The patient is able to ambulate with assistance. The patient is able to bear their full body weight. There is no radiation of the patient's discomfort. The complaints affect the pelvis. Onset: The symptoms/episode began/occurred 3 day(s) ago. Modifying factors: The symptoms are alleviated by OTC meds, remaining still, the symptoms are aggravated by any movement. Associated signs and symptoms: Loss of consciousness: the patient experienced no loss of consciousness, Pertinent negatives: abdominal pain, chest pain, dysuria, fever, incontinence, vomiting, weakness. Severity of symptoms: At their worst the symptoms were moderate, in the emergency department the symptoms have improved. The patient has experienced similar episodes in the past. The patient has not recently seen a physician. Pt reports 3 days of right groin/pelvic/hip pain, worse with ambulation and at end of workday. Stands on her feet all day and does a lot of lifting/twisting. No fall or direct trauma. No abd pain. No fever. NO chills. REports pain better in AM, gets worse with use. . Historical: - Allergies: 11:41 Codeine; vg1 - Home Meds: 11:41 Metformin Oral [Active]; vg1 - PMHx: 11:41 diabetes mellitus; Rheumatoid Arthritis; vg1 - PSHx: 11:41 Appendectomy; Cholecystectomy; rotator cuff; tubual; vg1 - Immunization history:: Client reports receiving the 2nd dose of the Covid vaccine. - Social history:: Smoking status: Patient reports the use of cigarette tobacco products, smokes one-half pack cigarettes per day. - Family history:: not pertinent. - Hospitalizations: : No recent hospitalization is reported. ROS: 12:07 Constitutional: Negative for fever, chills, and weight loss, Eyes: Negative for injury, rn pain, redness, and discharge, Cardiovascular: Negative for chest pain, palpitations, and edema, Respiratory: Negative for shortness of breath, cough, wheezing, and pleuritic chest pain, Abdomen/GI: Negative for abdominal pain, nausea, vomiting, diarrhea, and constipation, Back: Negative for injury and pain, : Negative for injury, bleeding, discharge, and swelling, MS/Extremity: Negative for injury and deformity, Skin: Negative for injury, rash, and discoloration, Neuro: Negative for headache, weakness, numbness, tingling, and seizure. Exam: 12:07 Constitutional: This is a well developed, well nourished patient who is awake, alert, rn and in no acute distress. Head/Face: Normocephalic, atraumatic. Cardiovascular: Regular rate and rhythm. No pulse deficits. Respiratory: No increased work of breathing, no retractions or nasal flaring. Abdomen/GI: Soft, non-tender, no masses in right groin or thigh. Skin: Warm, dry with normal turgor. Normal color with no rashes, no lesions, and no evidence of cellulitis. MS/ Extremity: Pulses equal, no cyanosis. Neurovascular intact. Full, normal range of motion with mild pain in groin/right hip with flexion and elevation of right leg. Equal circumference. Neuro: Awake and alert, GCS 15. Motor strength 5/5 in all extremities. Sensory grossly intact. Vital Signs: 11:38 BP 125 / 53; Pulse 84; Resp 16; Temp 98.1(TE); Pulse Ox 99% ; Weight 83.91 kg; Height 5 vg1 ft. 6 in. (167.64 cm); Pain 7/10; 13:30 BP 129 / 63; Pulse 80; Resp 17 S; Temp 98.0(TE); Pulse Ox 99% on R/A; aa5 11:38 Body Mass Index 29.86 (83.91 kg, 167.64 cm) vg1 MDM: 11:31 Patient medically screened. rn 13:30 Differential diagnosis: bursitis, arthritis, strain, lymphadenitis, lymphadenopathy, rn arthritis. Data reviewed: vital signs, nurses notes, lab test result(s), radiologic studies, CT scan, and as a result, I will discharge patient. Counseling: I had a detailed discussion with the patient and/or guardian regarding: the historical points, exam findings, and any diagnostic results supporting the discharge/admit diagnosis, lab results, radiology results, the need for outpatient follow up, to return to the emergency department if symptoms worsen or persist or if there are any questions or concerns that arise at home. Medical screen evaluation completed. EMTALA emergency medical condition absent. Special discussion: I discussed with the patient/guardian in detail that at this point there is no indication for admission to the hospital. It is understood, however, that if the symptoms persist or worsen the patient needs to return immediately for re-evaluation. Based on the history and exam findings, there is no indication for further emergent testing or inpatient evaluation. I discussed with the patient/guardian the need to see the primary care provider for further evaluation of the symptoms. I discussed with the patient/guardian the need to see the submarine diver for further evaluation of the symptoms. ED course: No acute findings on imaging or blood other than enlarged right inguinal lymph nodes, could explain her pain. No evidence of RLE infection/cellulitis. CBC diff without elevated cell line. Spoke to patient and printed out results of CT, including new pulmonary nodule and enlarged lymph nodes as well as need for biopsy of lymph nodes to rule out malignancy. Considered observation for procedure, but can also be done as outpt and patient with good f/u plan.. 05/11 11:45 Order name: CBC with Diff; Complete Time: 13:03 rn 05/11 11:45 Order name: CMP; Complete Time: 13:03 rn 05/11 11:45 Order name: Lipase; Complete Time: 13:03 rn 05/11 11:45 Order name: CT Abd/Pelvis - IV Contrast Only; Complete Time: 13:21 rn 05/11 11:45 Order name: IV Saline Lock; Complete Time: 12:07 rn 05/11 12:30 Order name: CBC Smear Scan; Complete Time: 13:03 EDNY 05/11 11:45 Order name: Labs collected and sent; Complete Time: 12:07 rn Administered Medications: No medications were administered Disposition Summary: 05/11/22 13:32 Discharge Ordered Location: Home rn Problem: new rn Symptoms: have improved rn Condition: Stable rn Diagnosis - Acute lymphadenitis of lower limb rn Followup: rn - With: Private Physician - When: As needed - Reason: Recheck today's complaints, Re-evaluation by your physician Discharge Instructions: - Discharge Summary Sheet rn - Lymphadenopathy rn Forms: - Medication Reconciliation Form rn - Thank You Letter rn - Antibiotic rn picu - Prescription Opioid Use rn Signatures: Dispatcher [employer] Chandana Rodrigues MD MD rn Garcia, Victoria, RN RN vg1 Corrections: (The following items were deleted from the chart) 13:49 11:45 Urine Dipstick-Ancillary ordered. rn aa5
--- NOTE | 2022-05-11 13:33 | ER ---
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 Denies burning sensation upon urinating or frequency. Coronavirus screen: Vaccine status: Patient reports receiving the 2nd dose of the covid vaccine. Client denies travel out of the [place] in the last 14 days. Ebola Screen: Patient negative for fever greater than or equal to 101.5 degrees Fahrenheit, and additional compatible Ebola Virus Disease symptoms. Initial Sepsis Screen: Does the patient meet any 2 criteria? No. Patient's initial sepsis screen is negative. Does the patient have a suspected source of infection? No. Patient's initial sepsis screen is negative. Risk Assessment: Do you want to hurt yourself or someone else? Patient reports no desire to harm self or others. Onset of symptoms was May 05, 2022. 11:38 Method Of Arrival: Wheelchair vg1 11:38 Acuity: LYNNETTE 3 vg1 Triage Assessment: 11:41 Pain: Complains of pain in right side of groin and Left flank Pain currently is 7 out vg1 of 10 on a pain scale. Pain began x 1 week Aggravated by increased activity, walking. Neuro: Level of Consciousness is awake, alert, obeys commands, Oriented to person, place, time, situation. : Denies burning with urination, urinary frequency. Derm: Skin is pink, warm \T\ dry. Musculoskeletal: Circulation, motion, and sensation intact. Historical: - Allergies: 11:41 Codeine; vg1 - Home Meds: 11:41 Metformin Oral [Active]; vg1 - PMHx: 11:41 diabetes mellitus; Rheumatoid Arthritis; vg1 - PSHx: 11:41 Appendectomy; Cholecystectomy; rotator cuff; tubual; vg1 - Immunization history:: Client reports receiving the 2nd dose of the Covid vaccine. - Social history:: Smoking status: Patient reports the use of cigarette tobacco products, smokes one-half pack cigarettes per day. - Family history:: not pertinent. - Hospitalizations: : No recent hospitalization is reported. Screenin:00 [facility] ED Fall Risk Assessment (Adult) History of falling in the last 3 months, aa5 including since admission No falls in past 3 months (0 pts) Confusion or Disorientation No (0 pts) Intoxicated or Sedated No (0 pts) Impaired Gait No (0 pts) Mobility Assist Device Used No (0 pt) Altered Elimination No (0 pt) Score/Fall Risk Level 0 - 2 = Low Risk. Abuse screen: Denies threats or abuse. Nutritional screening: No deficits noted. Tuberculosis screening: No symptoms or risk factors identified. Assessment: 11:50 General: Appears comfortable, Behavior is calm, cooperative. Pain: Complains of pain in aa5 right groin, right hip and left flank Pain currently is 7 out of 10 on a pain scale. Quality of pain is described as sharp, Pain began 1 week ago Is intermittent. Neuro: Level of Consciousness is awake, alert, obeys commands, Oriented to person, place, time, situation. Cardiovascular: Heart tones S1 S2 present Rhythm is regular. Respiratory: Airway is patent Respiratory effort is even, unlabored, Respiratory pattern is regular, symmetrical. GI: No signs and/or symptoms were reported involving the gastrointestinal system. Patient currently denies diarrhea, nausea, vomiting. : No signs and/or symptoms were reported regarding the genitourinary system. EENT: No signs and/or symptoms were reported regarding the EENT system. Derm: Skin is dry, Skin is normal, Skin temperature is warm. Musculoskeletal: Range of motion: intact in all extremities. 12:11 Reassessment: Warm blankets provided for comfort. Awaiting CT scan, pt notified of wait aa5 time. . 13:49 Neuro: Level of Consciousness is awake, alert, obeys commands, Oriented to person, aa5 place, time, situation. Respiratory: Airway is patent Respiratory effort is even, unlabored, Respiratory pattern is regular, symmetrical. Derm: Skin is dry, Skin is normal, Skin temperature is warm. Vital Signs: 11:38 BP 125 / 53; Pulse 84; Resp 16; Temp 98.1(TE); Pulse Ox 99% ; Weight 83.91 kg; Height 5 vg1 ft. 6 in. (167.64 cm); Pain 7/10; 13:30 BP 129 / 63; Pulse 80; Resp 17 S; Temp 98.0(TE); Pulse Ox 99% on R/A; aa5 11:38 Body Mass Index 29.86 (83.91 kg, 167.64 cm) vg1 ED Course: 11:29 Patient arrived in ED. am2 11:31 Chandana Umana MD is Attending Physician. rn 11:41 Triage completed. vg1 11:41 Arm band placed on. vg1 11:50 Patient has correct armband on for positive identification. Bed in low position. Call aa5 light in reach. Side rails up X 1. 11:59 Juliana Roberson, RN is Primary Nurse. aa5 12:03 Initial lab(s) drawn, by me, sent to lab. Inserted saline lock: 20 gauge in right aa5 antecubital area, using aseptic technique. Blood collected. 12:55 CT Abd/Pelvis - IV Contrast Only In Process Unspecified. EDMS 13:49 No provider procedures requiring assistance completed. IV discontinued, intact, aa5 bleeding controlled, No redness/swelling at site. Pressure dressing applied. Administered Medications: No medications were administered Medication: 13:38 VIS not applicable for this client. aa5 Outcome: 13:32 Discharge ordered by . rn 13:49 Discharged to home via wheelchair. aa5 13:49 Condition: stable 13:49 Discharge instructions given to patient, Instructed on discharge instructions, follow up and referral plans. Demonstrated understanding of instructions, follow-up care. 13:50 Patient left the ED. aa5 Signatures: Dispatcher [employer] EDMS Chandana Umana MD MD rn Calderon, Audri, RN RN aa5 Griselda Douglas [facility] Zofia Holliday RN RN vg1
[2022-05-11 13:55] VITALS: O2SAT 99
[2022-05-11 13:56] VITALS: BP 129/63; TEMP 98
== END 2022-05-11 13:50 | disposition home or self-care (01) ==
LOC: ER 11:23
DX: L04.3 Acute lymphadenitis of lower limb (principal); E11.9 Type 2 diabetes mellitus without complications; F17.210 Nicotine dependence, cigarettes, uncomplicated; Z88.5 Allergy status to narcotic agent
CPT/HCPCS: 85025; 36415; 83690; 80053; 74177; 99283; Q9967

== ENCOUNTER 2022-06-26 09:33 | Day surgery (SDC) | payer OTHER ==
--- NOTE | 2022-06-26 09:36 | RAD REPORT ---
EXAM DESCRIPTION: RAD - Chest Pa And Lat (2 Views) - 06/26/2022 9:32 am CLINICAL HISTORY: pre op for surgery COMPARISON: No comparisons FINDINGS: Lines: None. Lungs: No evidence of edema or pneumonia. Pleural: No significant pleural effusions or pneumothorax. Cardiac: The heart size is within normal limits. Mediastinum: Within normal limits. Bones: No acute fractures. Other: None IMPRESSION: No acute cardiopulmonary disease.
[2022-06-26] MEDS ORDERED: NA CHLORIDE 0.9% 1,000 ML ONE (09:51)
[2022-06-26] MEDS ORDERED: CEFAZOLIN SODIUM 1 GM/VIAL ONE (09:51)
[2022-06-26] MEDS ORDERED: propofoL 200 MG/20 ML VIAL IV ONE (10:14)
[2022-06-26] MEDS ORDERED: FENTANYL CITR 100 MCG/2 ML ONE (10:14)
[2022-06-26] MEDS ORDERED: ONDANSETRON 4 MG/2 ML VIAL ONE (10:15)
[2022-06-26] MEDS ORDERED: LIDOCAINE 2% MPF 5 ML VIAL ONE (10:15)
[2022-06-26] MEDS ORDERED: Phenylephrine HCl 10 MG/ML 1 ML VIAL ONE (10:34)
--- NOTE | 2022-06-26 10:57 | P.BOP ---
Preoperative diagnosis: right groin tender mass/lymphadenopathy Postoperative diagnosis: same Primary procedure: Right groin tender lymphadenectomy Estimated blood loss: <10cc Specimen: lump /Lymphnode Findings: enlarged friable lump/inflammed lymphnode Anesthesia: General Complications: None Transferred to: Recovery Room Condition: Good
[2022-06-26 11:39] LABS: Hematocrit 32.3 % (36.0-45.0); Lymphocytes % 26.4 % (15.3-44.8); MCV 89.1 fL (80-100); MPV 9.1 fL (7.6-11.3); RBC Red Blood Cell Count 3.63 M/uL (3.86-4.86)
[2022-06-26 11:47] LABS: Potassium 4.1 mmol/L (3.5-5.1)
[2022-06-26 12:38] VITALS: BP 119/47; TEMP 98.4; O2SAT 95
--- NOTE | 2022-06-26 15:19 | EKG ---
Test Date: 2022-06-26 Test Time: 09:15:10 [employer] Professional: LILY MEASUREMENT RESULTS: Intervals: Rate: 81 VT: 168 QRSD: 76 QT: 414 QTc: 480 [place]: P: 70 VT: 168 QRS: 29 T: 85 INTERPRETIVE STATEMENTS: Normal sinus rhythm Possible Left atrial enlargement Cannot rule out Anterior infarct, age undetermined Abnormal ECG Compared to ECG 05/09/2003 08:14:00 T-wave abnormality no longer present Possible ischemia no longer present Myocardial infarct finding still present Electronically Signed On 06-26-22 15:18:32 FRONT DESK RECEPTIONIST by Cristo Carr
--- NOTE | 2022-06-26 21:05 | OP ---
Date of Procedure: 06/26/2022 Surgeon: Joao Ramirez MD Preoperative Diagnosis: Right groin tender mass lymphadenopathy. Postoperative Diagnosis: Right groin tender mass lymphadenopathy. Procedure: Right groin tender lymphadenectomy. Estimated Blood Loss: Less than 10 cc. Anesthesia: General plus local. Findings: A large friable lump looked like an enlarged lymph node. Anesthesia: General plus local. Indication: This is the case of an 81-year-old patient who comes to us with the right groin mass. I maging was done showing enlarged lymph node. It has been there for several weeks, months, but gettin g bigger. She was concerned. We offered her a conservative treatment versus a needle biopsy. She w ants the lump removed, so we also have the option of excision of lymph node or the mass that she may have in that region. She understand that through the imaging we believe lymph node sometimes may be more than that, sometimes we even find femoral hernia that looked like it, so the excisional biopsy o f a lymph node/mass was explained, possible hernia repair with benefits, alternatives, and risks incl uding, but not limited to, infection, bleeding, damage to adjacent structures, anesthesia complicatio n, recurrence, seromas, hematomas, CO, and even . She also understands this may not relieve any symptoms. She might need more than one surgical intervention. She understood, signed a consent. Description Of Procedure: Patient brought to the operating room, placed in supine position. Anesthe antonio was given without complication. Right groin area was prepped and draped in a sterile fashion. P rior to coming to the OR, me and the patient marked the area of concern once again and closed with th e same findings, we have in office and also on imaging. After time-out, then we proceeded to then gretchen guerra an incision in that area. I did not want to inject some local anesthetic yet as I do not want to disturb the anatomy. Incision was carried down. We went medial on the femoral region where the lymp h nodes will be there and then we went there, we felt the mass. The mass looked like a friable enlar ged lymph node, probably from previous infections in the past. It is hard to say, although neoplasia cannot be completely ruled out. Since we that from the rest of the nerve, the artery and vein were protected at all times. We proceeded to do the proximal and distal control of the drainage of this lymph node and took care of them with the help of hemoclips. After that, we dissected the m ass/lymph node and sent it for biopsy, sent fresh. Area was irrigated. Hemostasis was obtained. We proceeded to close the subcutaneous tissue with the chromic and then the skin with jeremiah. No othe r masses palpated. The sponge counts and instrument counts were correct. The patient sent to [facility] in stable condition. JOVANNY/GET Voice ID: [id number] Report ID: [id number]
--- NOTE | 2022-06-26 21:11 | DS ---
Date of Discharge: 06/26/2022 Diagnosis: Right groin tender lymphadenopathy. Procedure: Right groin tender lymphadenectomy. Disposition: Home. Activity: As tolerated. No heavy lifting. Follow Up: In my office in 1 week. Call for appointment at [phone]. Discharge Instructions: Keep area dry for 48 hours, then may shower. JOVANNY/GET Voice ID: [id number] Report ID: [id number]
== END 2022-06-26 12:30 | disposition home or self-care (01) ==
LOC: OR 09:33
PROVIDERS: ATTEND Surgery
PROC: 07TH0ZZ Resection of Right Inguinal Lymphatic, Open Approach (ICD-10-PCS; 2022-06-26)
PROC: 07TH0ZZ Resection of Right Inguinal Lymphatic, Open Approach (ICD-10-PCS; principal; 2022-06-26 10:30)
DX: R59.0 Localized enlarged lymph nodes (principal); R22.2 Localized swelling, mass and lump, trunk
CPT/HCPCS: 93005; 85025; 80048; 36415; 82947; 88305; 71046; 38531; J2704; J2370; J2001; J3010; J7030; J2405; J0690

== ENCOUNTER 2022-07-16 13:17 | Inpatient (IN) | payer OTHER ==
--- OUTSIDE RECORDS SUMMARY | 2022-07-16 13:23 | XMS REPORT | Continuity of Care Document ---
:1940 Author Organization [facility] t Address [address] [facility] [address] [place] [id number] Care Team Providers Name Role Phone Dave_S Attending Clinician Unavailable Dave_S Admitting Clinician Unavailable Payers Payer Name Policy Type Policy Number Effective Date Expiration Date Marcia stanley [employer] [id number] 2022 HEALTHPLANS 00:00:00 (MEDICARE REPLACEMENT HMO) Needle HR [facility] [id number] 2022 (MEDICARE 00:00:00 REPLACEMENT/ADVANTA GE - HMO) FOR[facility]LY [facility] [id number] 2022 (HMO) 00:00:00 [facility] [place] [id number] 2021 2022 [employer] (MEDICARE 00:00:00 00:00:00 REPLACEMENT/ADVANTA GE - HMO) Problems Condition Condition Condition Status Onset Resolution Last Treating Co mments Source Name Details Category Date Date Treatment Clinician Date Inguinal Inguinal Problem Active Roberts ge lymphadeno Lymphadeno 1-10 Fa richard armenta geovany 00:00: Practic 00 e Chronic Chronic Problem Active 2021-05 [facility] kidney Kidney 1-14 Family disease Disease 00:00: Practic stage 3B Stage 3B 00 e 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 santos immune Immune 1-03 Family deficiency Deficiency 00:00: Pr actic disorder Disorder 00 e Dyspnea Dyspnea Problem Active 2021-05 [facility] 1-03 Family 00:00: Practic 00 e Type 2 Type 2 Problem Active [facility] diabetes Diabetes 4-07 Family mellitus Mellitus 00:00: Practi c with with 00 e peripheral Peripheral angiopathy Angiopathy SNOMED CT SNOMED CT Problem Active Ronit santos Concept Concept 7-04 Family 00:00: Practic 00 e 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 Rhinitis 00:00: Practi c 00 e Clinical Clinical Problem Active Roberts ge finding Finding 4-18 Family 00:00: Practic 00 e Renal Renal Problem Active [facility] disorder Disorder 8-01 Family due to Due to 00:00: Practic type 2 Type 2 00 e diabetes Diabetes mellitus Mellitus Peripheral Peripheral Problem Active [facility]ascular 8- Family disease Disease 00:00: Practic 00 e Low back Low Back Problem Active 2018-05 [facility] ge pain Pain 2-18 Family 00:00: Practic 00 e Screening Screening Problem Active 2018-05 Ronit santos for for 1-02 Family malignant Malignant 00:00: Prac [...] 00 e 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 1-11 Family appearance Appearance 00:00: [...] Practic 00 e 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[facility] essential Essential 2-09 Fami ly hypertensi Hypertensi [...] Type Date Date Clinician Meloxica Allergy Active [facility] to 112 Family substanc 00:00: Practic e 00 e Codeine Allergy Active [facility] to 12-29 Family substanc 00:00: Practic e 00 e Social History Smoking Status Start Date Stop Date Source Heavy Tobacco Smoker [facility] mounika Practice Medications Ordered Filled Start Stop Current Ordering Indication Dosage Frequency Signature Comments Components Source Medication Medication Date Date Medication? Clinician (SIG) Name Name albuterol albuterol 2021-05 No albuterol [facility] sulfate 2.5 sulfate 2.5 1-03 sulfate Family [...] mouth once daily metformin metformin No metformin [facility] ER 500 mg ER 500 mg ER 500 mg Family tablet,exte tablet,exte tablet,ext Practic nded nded ended e release 24 release 24 release 24 hr TAKE 1 hr TAKE 1 hr TAKE 1 TABLET BY TABLET BY TABLET BY MOUTH THREE MOUTH THREE MOUTH TIMES DAILY TIMES DAILY THREE WITH MEALS WITH MEALS TIMES DAILY WITH MEALS methotrexat methotrexat No methotrexa [facility] e sodium e sodium te sodium Fa richard 2.5 mg 2.5 mg 2.5 mg Practic tablet TAKE tablet TAKE tablet e 5 TABLETS 5 TABLETS TAKE 5 BY MOUTH BY MOUTH TABLETS BY ONCE A WEEK ONCE A WEEK MOUTH ONCE A WEEK multivitami multivitami No multivitam [facility] [place] 3 [facility] rosuvastati rosuvastati No rosuvastat [facility] n 20 mg n 20 mg in 20 mg Famil y tablet TAKE tablet TAKE tablet Practic 1 TABLET BY 1 TABLET BY TAKE 1 e MOUTH ONCE MOUTH ONCE TABLET BY DAILY DAILY MOUTH ONCE DAILY Vitamin C Vitamin C No Vitamin C [facility] 1,000 mg 1,000 mg 1,000 mg Fam mounika tablet Take tablet Take tablet Practic by oral by oral Take by e route. route. oral route. Vitamin D3 Vitamin D3 No Vitamin D3 [facility] albuterol albuterol No albuterol [facility] sulfate 2.5 sulfate 2.5 sulfate Family mg/3 [...] e oral route. oral route. oral route. diclofenac diclofenac No diclofenac [facility] 1 % topical 1 % topical 1 % F amily gel APPLY gel APPLY topical Pr actic TOPICALLY TOPICALLY gel APPLY e ONCE DAILY ONCE DAILY TOPICALLY DIRECTED DIRECTED ONCE DAILY NEEDED NEEDED DIRECTED NEEDED folic acid folic acid No folic acid [facility] 1 mg tablet 1 mg tablet 1 mg F amily TAKE 1 TAKE 1 tablet Practic TABLET BY TABLET BY TAKE 1 e MOUTH ONCE MOUTH ONCE TABLET BY DAILY DAILY MOUTH ONCE DAILY losartan 25 losartan 25 No losartan [facility] mg tablet mg tablet 25 mg Fami ly Take 1 Take 1 tablet Practic tablet by tablet by Take 1 e mouth once mouth once tablet by daily daily mouth once daily metformin metformin No metformin [facility] 500 [...] DAILY WITH MEALS methotrexat methotrexat No methotrexa [facility] e sodium e sodium te sodium Fa richard 2.5 mg 2.5 mg 2.5 mg Practic tablet TAKE tablet TAKE tablet e 5 TABLETS 5 TABLETS TAKE 5 BY MOUTH BY MOUTH TABLETS BY ONCE A WEEK ONCE A WEEK MOUTH ONCE A WEEK multivitami multivitami No multivitam [facility] [place] 3 [facility] rosuvastati rosuvastati No rosuvastat [facility] n 20 mg n 20 mg in 20 mg Famil y tablet TAKE tablet TAKE tablet Practic 1 TABLET BY 1 TABLET BY TAKE 1 e MOUTH ONCE MOUTH ONCE TABLET BY DAILY DAILY MOUTH ONCE DAILY Vitamin C Vitamin C No Vitamin C [facility] 1,000 mg 1,000 mg 1,000 mg Fam mounika tablet Take tablet Take tablet Practic by oral by oral Take by e route. route. oral route. Vitamin D3 Vitamin D3 No Vitamin D3 [facility] Family Practic e aspirin 81 aspirin 81 No 1 Q1D aspirin 81 [facility] mg chewable mg chewable mg F amily tablet Chew tablet Chew chewable Practic 1 tablet 1 tablet tablet e every day every day Chew 1 by oral by oral tablet route. route. every day by oral route. cephalexin cephalexin No cephalexin [facility] 500 mg 500 mg 500 mg Family [...] route. oral route. fluticasone fluticasone No fluticason [facility] propionate propionate e Fam mounika 50 50 propionate Practic mcg/actuati mcg/actuati 50 e on nasal on nasal mcg/actuat spray,suspe spray,suspe ion nasal nsion nsion spray,susp ension folic acid folic acid No folic acid [facility] folic acid folic acid No folic acid [facility] 1 mg tablet 1 mg tablet 1 [...] Family Practic e methotrexat methotrexat No methotrexa [facility] e sodium e sodium te sodium Fa richard 2.5 mg 2.5 mg 2.5 mg Practic tablet TAKE tablet TAKE tablet e 5 TABLETS 5 TABLETS TAKE 5 BY MOUTH BY MOUTH TABLETS BY ONCE A WEEK ONCE A WEEK MOUTH ONCE A WEEK multivitami multivitami No multivitam [facility] n n in Family Practic e [place] 3 [place] 3 No [place] 3 [facility] orphenadrin orphenadrin No orphenadri [facility] e citrate e citrate ne citrate Family ER 100 mg ER 100 mg ER 100 mg Practic tablet,exte tablet,exte tablet,ext e nded nded ended release release release TAKE 1 TAKE 1 TAKE 1 TABLET BY TABLET BY TABLET BY MOUTH TWICE MOUTH TWICE MOUTH DAILY DAILY TWICE NEEDED NEEDED DAILY NEEDED rosuvastati rosuvastati No rosuvastat [facility] n 20 mg n 20 mg in 20 mg Famil y tablet TAKE tablet TAKE tablet Practic 1 TABLET BY 1 TABLET BY TAKE 1 e MOUTH ONCE MOUTH ONCE TABLET BY DAILY DAILY MOUTH ONCE DAILY Vitamin C Vitamin C No Vitamin C [facility] 1,000 mg 1,000 mg 1,000 mg Fam mounika tablet Take tablet Take tablet Practic by oral by oral Take by e route. route. oral route. Vitamin D3 Vitamin D3 No Vitamin D3 [facility] Family Practic e albuterol albuterol No albuterol [facility] sulfate 2.5 sulfate 2.5 sulfate Family mg/3 [...] oral route. Cinnamon Cinnamon No Cinnamon Ronit santos 500 mg 500 mg 500 mg Family capsule capsule capsule Practi c Take by Take by Take by e oral route. oral route. oral route. folic acid folic acid No folic acid [facility] 1 mg tablet 1 mg tablet 1 mg F amily TAKE 1 TAKE 1 tablet Practic TABLET BY TABLET BY TAKE 1 e MOUTH ONCE MOUTH ONCE TABLET BY DAILY DAILY MOUTH ONCE DAILY Immunizations Ordered Immunization Filled Immunization Date Status Commen ts Source Name Name pneumococcal pneumococcal 2021-08-09 Completed [facility] polysaccharide PPV23 polysaccharide PPV23 13:44:02 Practice pneumococcal pneumococcal 2021-08-09 Completed [facility] polysaccharide PPV23 polysaccharide PPV23 13:44:02 Practice pneumococcal pneumococcal 2021-08-09 Completed [facility] polysaccharide PPV23 polysaccharide PPV23 13:44:02 Practice COVID-19, mRNA, COVID-19, mRNA, 2021-06-01 Completed [facility] LNP-S, PF, 30 mcg/0.3 LNP-S, PF, 30 mcg/0.3 00:00:00 Practice mL dose mL dose (Pfizer-BioNTech) (Netstory-BioNTech) COVID-19, mRNA, COVID-19, mRNA, 2021-06-01 Completed [facility] LNP-S, PF, 30 mcg/0.3 LNP-S, PF, 30 mcg/0.3 00:00:00 Practice mL dose mL dose (Pfizer-BioNTech) (Pfizer-BioNTech) COVID-19, mRNA, COVID-19, mRNA, 2021-06-01 Completed [facility] LNP-S, PF, 30 mcg/0.3 LNP-S, PF, 30 mcg/0.3 00:00:00 Practice mL dose mL dose (Pfizer-BioNTech) (Netstory-BioNTech) COVID-19 (SARS-COV-2) COVID-19 (SARS-COV-2) 2020-07-21 Completed [facility] vaccine, unspecified vaccine, unspecified 00:00:00 Practice COVID-19 (SARS-COV-2) COVID-19 (SARS-COV-2) 2020-07-21 Completed [facility] vaccine, unspecified vaccine, unspecified 00:00:00 Practice COVID-19 (SARS-COV-2) COVID-19 (SARS-COV-2) 2020-07-21 Completed [facility] vaccine, unspecified vaccine, unspecified 00:00:00 Practice Influenza, Influenza, 2018-02-12 Completed [facility] injectable, MDCK, injectable, MDCK, 00:00:00 Practice quadrivalent quadrivalent Influenza, Influenza, 2018-02-12 Completed [facility] injectable, MDCK, injectable, MDCK, 00:00:00 Practice quadrivalent quadrivalent Influenza, Influenza, 2018-02-12 Completed [facility] injectable, MDCK, injectable, MDCK, 00:00:00 Practice quadrivalent quadrivalent influenza, seasonal, influenza, seasonal, 2016-02-19 Completed [facility] injectable, injectable, 00:00:00 Practice preservative free preservative free influenza, seasonal, influenza, seasonal, 2016-02-19 Completed [facility] injectable, injectable, 00:00:00 Practice preservative free preservative free influenza, seasonal, influenza, seasonal, 2016-02-19 Completed [facility] injectable, injectable, 00:00:00 Practice preservative free preservative free pneumococcal pneumococcal 2015-08-28 Completed [facility] richard conjugate PCV 13 conjugate PCV 13 00:00:00 Pr actice pneumococcal pneumococcal 2015-08-28 Completed [facility] richard conjugate PCV 13 conjugate PCV 13 00:00:00 Pr actice pneumococcal pneumococcal 2015-08-28 Completed [facility] richard conjugate PCV 13 conjugate PCV 13 00:00:00 Pr actice influenza, seasonal, influenza, seasonal, 2008-02-23 Completed [facility] injectable injectable 00:00:00 Practice influenza, seasonal, influenza, seasonal, 2008-02-23 Completed [facility] injectable injectable 00:00:00 Practice influenza, seasonal, influenza, seasonal, 2008-02-23 Completed [facility] injectable injectable 00:00:00 Practice Vital Signs Vital Name Observation Time Observation Value Comments Source BP Diastolic 2022-05-13 00:00:00 72 mm[Hg] [facility] Height 2022-05-13 00:00:00 67 [in_i] [facility] BP Systolic 2022-05-13 00:00:00 114 mm[Hg] [facility] BP Diastolic 2022-03-07 00:00:00 61 mm[Hg] [facility] Height 2022-03-07 00:00:00 67 [in_i] [facility] Practice BMI (Body Mass 2022-03-07 00:00:00 30.2 kg/m2 [facility] Family Index) Practice BP Systolic 2022-03-07 00:00:00 111 mm[Hg] [facility] Practice Body Weight 2022-03-07 00:00:00 192.8 [lb_av] [facility] Practice BP Diastolic 2021-08-09 00:00:00 65 mm[Hg] [facility] Practice Height 2021-08-09 00:00:00 67 [in_i] [facility] Practice BMI (Body Mass 2021-08-09 00:00:00 31.3 kg/m2 [facility] Index) Practice BP Systolic 2021-08-09 00:00:00 105 mm[Hg] [facility] Body Weight 2021-08-09 00:00:00 199.8 [lb_av] [facility] Practice BP Diastolic 2021-05-03 00:00:00 68 mm[Hg] [facility] Height 2021-05-03 00:00:00 67 [in_i] [facility] Practice BMI (Body Mass 2021-05-03 00:00:00 32.3 kg/m2 [facility] Index) Practice BP Systolic 2021-05-03 00:00:00 104 mm[Hg] [facility] Body Weight 2021-05-03 00:00:00 206 [lb_av] [facility] Procedures Procedure Date / Time Performed Performing Clinician [facility] e LDCT, chest, for lung 2022-03-07 00:00:00 [facility] cancer screening Practice EVALUATION OF WHEEZING 2022-03-07 00:00:00 Roberts [facility] Practice MAMMO, screening, 2021-08-09 00:00:00 [facility] Brianne ramos digital, bilateral Practice Complete Repair of [facility] Famil y Rotator Cuff Practice Gallbladder Surgery [facility] ly Practice Plan of Care Planned Activity Planned Date Details Comments Source Diagnostic Test Pending 2022-03-07 HbA1c (hemoglobin [facility] 00:00:00 A1c), blood [code Practice = HbA1c (hemoglobin A1c), blood] Diagnostic Test Pending 2022-03-07 PTH (parathyroid [facility] 00:00:00 hormone), intact, Practice serum or plasma [code = PTH (parathyroid hormone), intact, serum or plasma] Diagnostic Test Pending 2022-03-07 BMP, serum or Ronit tom [facility] 00:00:00 plasma [code = Practice BMP, serum or plasma] Diagnostic Test Pending 2022-03-07 iron + TIBC + Ronit tom Family 00:00:00 ferritin, serum Practice [code = iron + TIBC + ferritin, serum] Diagnostic Test Pending 2022-03-07 CBC w/ auto diff [facility] 00:00:00 [code = CBC w/ Practice auto diff] Instructions [facility] Practice Encounters Start End Encounter Admission Attending Care Care Encounter Source Date/Time Date/Time Type Type Clinicians Facility Department ID 2022-07-16 2022-07-16 Outpatient Dave_S VFP VFP [id number] [facility] 00:00:00 00:00:00 [id number] Family Practic e 2022-07-12 2022-07-12 Outpatient Dave_S VFP VFP [id number] [facility] 00:00:00 00:00:00 [id number] Family Practic e 2022-05-29 2022-05-29 Outpatient Dave_S VFP VFP [id number] [facility] 00:00:00 00:00:00 [id number] Family Practic e 2022-05-29 2022-05-29 Outpatient Dave_S VFP VFP [id number] [facility] 00:00:00 00:00:00 [id number] Family Practic e 2022-05-29 2022-05-29 Outpatient Dave_S VFP VFP [id number] [facility] 00:00:00 00:00:00 [id number] Family Practic e 2022-05-13 2022-05-13 Outpatient Dave_S VFP VFP [id number] -[id number] [facility] 00:00:00 00:00:00 [id number] Family Practic e 2022-05-13 2022-05-13 Outpatient Dave_S VFP VFP [id number] [facility] 00:00:00 00:00:00 [id number] Family Practic e 2022-05-13 2022-05-13 Outpatient Dave_S VFP VFP [id number] [facility] 00:00:00 00:00:00 [id number] Family Practic e 2022-05-13 2022-05-13 Milagros VFP [place] - [id number] [facility] 00:00:00 00:00:00 [facility] Famil y Jose Elias, [employer]: Medical - Pract ic [address] [place] [address] [address] , Ph. 2022-03-19 2022-03-19 Outpatient Dave_S VFP VFP [id number] [facility] 00:00:00 00:00:00 [id number] Family Practic e 2022-03-07 2022-03-07 Outpatient Dave_S VFP VFP [id number] [facility] 00:00:00 00:00:00 [id number] Family Practic e 2022-03-07 2022-03-07 Arthur VFP [place] - [id number] [facility] 00:00:00 00:00:00 Lian Cruz DO: [address] Medical - Pract ic Fm [address] [place] [address] [address] , Ph. 2021-08-29 2021-08-29 Outpatient Dave_S VFP VFP [id number] [facility] 00:00:00 00:00:00 [id number] Family Practic e 2021-08-09 2021-08-09 Outpatient Dave_S VFP VFP [id number] [facility] 01:47:00 01:47:00 [id number] Family Practic e 2021-08-09 2021-08-09 Arthur VFP [place] - [id number] [facility] 00:00:00 00:00:00 Lian Cruz DO: 130[address] Medical - Pract ic Fm [address] Suite [facility] [address] , Ph. 2021-06-13 2021-06-13 Outpatient Dave_S VFP VFP [id number] [facility] 03:35:00 03:35:00 [id number] Family Practic e 2021-05-14 2021-05-14 Outpatient Dave_S VFP VFP [id number] [facility] 06:33:00 06:33:00 [id number] Family Practic e 2021-05-03 2021-05-03 Outpatient Dave_S VFP VFP [id number] -20 [facility] 01:15:00 01:15:00 [id number] Family Practic e 2021-05-03 2021-05-03 Outpatient Dave_S VFP VFP [id number] -[id number] [facility] 01:15:00 01:15:00 [id number] Family Practic e 2021-05-03 2021-05-03 Arthur VFP [place] - [id number] [facility] 00:00:00 00:00:00 Marisela Lian Beth Family DO: 130[address] Medical - Pract ic [address] [address] [facility], ([facility] [place]) [place] [address] , Ph. 2021-04-25 2021-04-25 Outpatient Dave_S VFP VFP [id number] -20 [facility] 06:57:00 06:57:00 [id number] Family Practic e Results This patient has no known results.
[2022-07-16 13:53] LABS: Urine Blood Negative (Negative); Urine Glucose Negative (Negative); Urine Protein Trace (Negative); Urine Specific Gravity 1.025 (1.005-1.030); Urine pH 5.5 (5.0-7.0)
[2022-07-16] MEDS ORDERED: KETOROLAC 30 MG/ML INJ ONE (14:08)
[2022-07-16 14:18] LABS: Absolute Lymphocytes (CBC) 0.8 K/uL (0.7-4.9); Hematocrit 32.8 % (36.0-45.0); Lymphocytes % 10.6 % (15.3-44.8); MCV 88.1 fL (80-100); MPV 8.1 fL (7.6-11.3); RBC Red Blood Cell Count 3.72 M/uL (3.86-4.86)
--- NOTE | 2022-07-16 14:29 | RAD REPORT ---
EXAM DESCRIPTION: Stepan Single View07/16/2022 2:00 pm CLINICAL HISTORY: Chest pain COMPARISON: June 2022 FINDINGS: The lungs appear clear of acute infiltrate. The heart is mildly enlarged IMPRESSION: No acute abnormalities displayed
[2022-07-16 16:08] LABS: Potassium 4.8 mmol/L (3.5-5.1)
[2022-07-16 16:11] LABS: Troponin High Sensitivity 199.6 pg/mL (<58.9)
--- NOTE | 2022-07-16 16:20 | ER ---
Nurse's Notes [facility] Name: Elizabeth Bills Age: 81 yrs Sex: Female : 1940 Arrival Date: 07/16/2022 Time: 13:21 Bed 5 Private MD: Diagnosis: Chest pain, unspecified Presentation: 07/16 13:33 Chief complaint: Left flank pain x 3 weeks. Denies injury/N/V/urinary s/s. Coronavirus hb screen: At this time, the client does not indicate any symptoms associated with coronavirus-19. Ebola Screen: No symptoms or risks identified at this time. Initial Sepsis Screen: Does the patient meet any 2 criteria? No. Patient's initial sepsis screen is negative. Does the patient have a suspected source of infection? No. Patient's initial sepsis screen is negative. Risk Assessment: Do you want to hurt yourself or someone else? Patient reports no desire to harm self or others. 13:33 Method Of Arrival: Wheelchair hb 13:33 Acuity: LYNNETTE 3 hb Historical: - Allergies: 13:35 Codeine; hb - PMHx: 13:35 diabetes mellitus; Rheumatoid Arthritis; hb - PSHx: 13:35 Appendectomy; Cholecystectomy; rotator cuff; tubual; hb - Immunization history:: Adult Immunizations up to date. - Social history:: Smoking status: Patient reports the use of cigarette tobacco products, smokes one-half pack cigarettes per day. Screenin:44 [facility] ED Fall Risk Assessment (Adult) History of falling in the last 3 months, sg5 including since admission No falls in past 3 months (0 pts). Abuse screen: Denies threats or abuse. Nutritional screening: No deficits noted. Tuberculosis screening: No symptoms or risk factors identified. Assessment: 13:44 General: Appears uncomfortable, Behavior is calm, cooperative, appropriate for age. sg5 Pain: Complains of pain in left upper flank Pain currently is 8 out of 10 on a pain scale. at worst was 10 out of 10 on a pain scale. Quality of pain is described as sharp, shooting, Pain began couple months. Neuro: No deficits noted. Level of Consciousness is awake, alert, obeys commands, Oriented to person, place, time, situation, Appropriate for age. Cardiovascular: No deficits noted. Denies chest pain, diaphoresis, fatigue, lightheadedness, nausea, palpitations, shortness of breath, syncope, vomiting, Capillary refill < 3 seconds Rhythm is regular. Respiratory: No deficits noted. Airway is patent. GI: No deficits noted. No signs and/or symptoms were reported involving the gastrointestinal system. Abdomen is round non-distended, Stools are reported to be normal. : No deficits noted. No signs and/or symptoms were reported regarding the genitourinary system. Denies burning with urination, pain with urination. EENT: No deficits noted. No signs and/or symptoms were reported regarding the EENT system. Derm: No deficits noted. No signs and/or symptoms reported regarding the dermatologic system. Musculoskeletal: No deficits noted. No signs and/or symptoms reported regarding the musculoskeletal system. 15:44 Reassessment: Patient and/or family updated on plan of care and expected duration. Pain sg5 level reassessed. Patient is alert, oriented x 3, equal unlabored respirations, skin warm/dry/pink. Patient states feeling better. Patient states symptoms have improved. Pain: Complains of pain in Left upper flank Pain currently is 3 out of 10 on a pain scale. Vital Signs: 13:33 BP 108 / 73; Pulse 89; Resp 16; Temp 97.3(TE); Pulse Ox 100% on R/A; Weight 81.65 kg; hb Height 5 ft. 6 in. ; Pain 10/10; 14:38 BP 108 / 62; Pulse 80; Resp 18; Pulse Ox 100% on R/A; ld1 15:18 BP 119 / 62; Pulse 83; Resp 16; Pulse Ox 100% on R/A; Pain 5/10; sg5 15:31 BP 119 / 62; Pulse 82; Resp 18; Pulse Ox 100% on R/A; ld1 13:33 Body Mass Index 29.05 (81.65 kg, 167.64 cm) hb 13:33 Pain Scale: Adult hb 15:18 Pain Scale: Adult sg5 ED Course: 13:21 Patient arrived in ED. rg4 13:23 Garrison Gomez MD is Attending Physician. bs3 13:34 Triage completed. hb 13:35 Arm band placed on. hb 13:41 Ximena South, GIOVANNI is Primary Nurse. sg5 13:44 Patient has correct armband on for positive identification. Bed in low position. Call sg5 light in reach. Side rails up X 1. Adult w/ patient. Valuables Left with patient. 14:02 XRAY Chest (1 view) In Process Unspecified. EDMS 14:05 Inserted saline lock: 20 gauge in right antecubital area, using aseptic technique. sg5 Blood collected. 14:09 CBC with Diff Sent. ld1 14:09 BMP Sent. ld1 14:09 Troponin High Sensitivity Sent. ld1 16:19 Jeremiah Umana MD is Hospitalizing Provider. bs3 Administered Medications: 14:09 Drug: Ketorolac IVP 15 mg Route: IVP; Site: right antecubital; ld1 14:38 Follow up: Response: No adverse reaction ld1 Medication: 13:44 VIS not applicable for this client. sg5 Outcome: 16:20 Decision to Hospitalize by Provider. bs3 Signatures: Dispatcher [employer] EDOH Randi Dalal RN RN Claire Mckenzie rg4 Sammie York RN RN ld1 Garrison Gomez MD MD bs3 Ximena South RN RN sg5 Corrections: (The following items were deleted from the chart) 13:35 13:33 Chief complaint: Left flank pain x 1 week. Denies injury/N/V/urinary s/s. hb hb 13:35 13:33 BP 108 / 73; Pulse 89bpm; Resp 16bpm; Pulse Ox 100% RA; Temp 97.3F Temporal; hb hb
--- NOTE | 2022-07-16 16:21 | EDPHYS ---
Physician Documentation [facility] Name: Elizabeth Bills Age: 81 yrs Sex: Female : 1940 Arrival Date: 07/16/2022 Time: 13:21 Bed 5 Private MD: ED Physician Garrison Gomez HPI: 07/16 13:54 This 81 yrs old Black Female presents to ER via Wheelchair with complaints of Flank bs3 Pain. 13:54 Pt notes 2 months of left side pain. She notes it is located in the midaxillary line at bs3 the edge of the ribs. She notes being seen here for this but the pain is getting worse. She has been taking acetaminophen for the pain. She denies associated shortness of breath chest pain nausea vomiting diaphoresis she notes that Dr. Garcia is he had a biopsy and then referred her to a cancer center but she has not followed up with the cancer center due to difficulties with insurance and therefore she came in for progressive pain. She has not been told that she has cancer as far she knows. History is limited secondary to patient's mental status possible age as pt thought she was here 3 weeks ago. . Historical: - Allergies: 13:35 Codeine; hb - PMHx: 13:35 diabetes mellitus; Rheumatoid Arthritis; hb - PSHx: 13:35 Appendectomy; Cholecystectomy; rotator cuff; tubual; hb - Immunization history:: Adult Immunizations up to date. - Social history:: Smoking status: Patient reports the use of cigarette tobacco products, smokes one-half pack cigarettes per day. ROS: 13:54 Constitutional: Negative for fever, chills bs3 13:54 All other systems are negative. Exam: 13:54 Constitutional: This is a well developed, well nourished patient who is awake, alert, bs3 and in no acute distress. Head/Face: Normocephalic, atraumatic. Eyes: Pupils equal round and reactive to light, extra-ocular motions intact. Lids and lashes normal. ENT: mmm, no posterior phyarngeal erythema Neck: Trachea midline, no thyromegaly, no neck stiffness Chest/axilla: Normal chest wall appearance and motion. She points to the midaxillary line at the lower rib margin for exact location of pain. Cardiovascular: Regular rate and rhythm with a normal S1 and S2. symmetric pulses in upper extremities Respiratory: Lungs have equal breath sounds bilaterally, clear to auscultation, no respiratory distress Back: No spinal tenderness. No costovertebral tenderness. Full range of motion. Skin: Warm, dry with normal turgor. Normal color with no rashes, no lesions, and no evidence of cellulitis. MS/ Extremity: Pulses equal, no cyanosis. Neurovascular intact. Full, normal range of motion. Neuro: Awake and alert, GCS 15, oriented to person, place, time, and situation. Cranial nerves II-XII grossly intact. Motor strength 5/5 in all extremities. Sensory grossly intact. Vital Signs: 13:33 BP 108 / 73; Pulse 89; Resp 16; Temp 97.3(TE); Pulse Ox 100% on R/A; Weight 81.65 kg; hb Height 5 ft. 6 in. ; Pain 10/10; 14:38 BP 108 / 62; Pulse 80; Resp 18; Pulse Ox 100% on R/A; ld1 15:18 BP 119 / 62; Pulse 83; Resp 16; Pulse Ox 100% on R/A; Pain 5/10; sg5 15:31 BP 119 / 62; Pulse 82; Resp 18; Pulse Ox 100% on R/A; ld1 13:33 Body Mass Index 29.05 (81.65 kg, 167.64 cm) hb 13:33 Pain Scale: Adult hb 15:18 Pain Scale: Adult sg5 MDM: 13:23 Patient medically screened. bs3 13:54 Data reviewed: vital signs, nurses notes. ED course: I considered pulmonary embolism bs3 but her vitals are normal her pain is constant she has no pleuritic symptoms with may be related to her cancer as she reportedly had enlarged lymph nodes on her CT previously we will get an x-ray attempted to contact Dr. Ramirez without response we will check labs we will rule out acute coronary syndrome and treat pain I considered AAA/dissection but her symptoms are chronic for months. 16:02 External Records Reviewed: Inpatient record: Reviewed prior surgical note and pathology bs3 report no signs of cancer. 16:06 ED course: Patient reassessed she is feeling much better her work-up so far bs3 nondiagnostic advised to follow-up with primary care. 16:18 Consideration of Admission/Observation Patient was admitted/placed on observation. ED bs3 course: EKG normal sinus rhythm at [address] elevations or depressions QTc 469 no significant change from 06/26/2022, trop elevated no prior, pt currently cp free, will admit for acs workup. 07/16 13:39 Order name: EKG - Nurse/Tech; Complete Time: 14:38 bs3 07/16 13:40 Order name: Urine Dipstick-Ancillary (obtain specimen); Complete Time: 13:53 bs3 07/16 13:40 Order name: CBC with Diff; Complete Time: 15:11 bs3 07/16 13:39 Order name: XRAY Chest (1 view); Complete Time: 15:11 bs3 07/16 16:13 Order name: Telemetry bs3 07/16 13:40 Order name: BMP; Complete Time: 16:17 bs3 07/16 13:40 Order name: Troponin High Sensitivity; Complete Time: 16:17 bs3 07/16 13:53 Order name: Urine Dipstick-Ancillary; Complete Time: 14:18 EDMS Administered Medications: 14:09 Drug: Ketorolac IVP 15 mg Route: IVP; Site: right antecubital; ld1 14:38 Follow up: Response: No adverse reaction ld1 Disposition Summary: 07/16/22 16:20 Hospitalization Ordered Hospitalization Status: Inpatient Admission bs3 Provider: Jeremiah Umana bs3 Location: Telemetry/MedSurg (Inpatient) bs3 Condition: Stable bs3 Problem: new bs3 Symptoms: have improved bs3 Bed/Room Type: Standard bs3 Room Assignment: bs3 Diagnosis - Chest pain, unspecified bs3 Forms: - Medication Reconciliation Form bs3 - SBAR form bs3 Signatures: Dispatcher [employer] EDRandi Drummond RN RN Sammie York RN RN ld1 Garrison Gomez MD MD bs3
[2022-07-16] MEDS ORDERED: ASPIRIN 81 MG CHEWABLE TABLET ONE (16:37)
[2022-07-16] MEDS ORDERED: ENOXAPARIN 80 MG/0.8 ML SQ ONE (16:37)
[2022-07-16] MEDS ORDERED: ONDANSETRON 4 MG/2 ML VIAL IV PRN (17:09)
--- NOTE | 2022-07-16 17:18 | P.HP ---
Certification for Inpatient Patient admitted to: Observation With expected LOS: <2 Midnights Patient will require the following post-hospital care: None Practitioner: I am a practitioner with admitting privileges, knowledge of patient current condition, hospital course, and medical plan of care. Services: Services provided to patient in accordance with Admission requirements found in Title 42 Section 412.3 of the Code of Federal Regulations Patient History Date of Service: 07/16/22 Reason for admission: Atypical chest pain, elevated troponin History of Present Illness: Patient is an 81-year-old female with a past medical history significant for rheumatoid arthritis, DM 2 who presents with complaint of chest pain located in the left anterior axillary line. Patient reported that pain has been ongoing for the past 2 months. Patient reported that she initially managed pain with pain medication for the first month but pain has not been responding to pain medication in the last 1 month.. Patient report rated pain as 10/10 in severity and described pain as aching in quality. Patient reported associated signs and symptoms of cough. Patient denies any other signs and symptoms. Symptoms are aggravated or relieved by nothing. Patient decided to present to the hospital for medical evaluation. Allergies codeine Allergy (Verified 06/26/22 09:01) Nausea/Vomiting Home Medications: Aspirin [Aspirin Regimen] 81 mg PO DAILY 06/26/22 Folic Acid 1 mg PO DAILY 06/26/22 Losartan Potassium 25 mg PO DAILY 06/26/22 Metformin ER [Glucophage ER] 500 mg PO TID 06/26/22 Methotrexate Sodium [Methotrexate] 4 tab PO 06/26/22 - Past Medical/Surgical History -: RA -: HTN -: DM 2 Past Surgical History: Reviewed- Non-Contributory - Family History Family History: Reviewed- Non-Contributory - Social History Smoking Status: Current every day smoker Counseled patient to stop smoking for: less than 10 minutes Smoking therapy provided: Yes Patient receptive to therapy: Yes Alcohol use: Yes CD- Drugs: No Caffeine use: Yes Place of Residence: Home Review of Systems General: Unremarkable Eyes: Unremarkable ENT: Unremarkable Respiratory: Cough Cardiovascular: Chest Pain Gastrointestinal: Unremarkable Genitourinary: Unremarkable Musculoskeletal: Unremarkable Integumentary: Unremarkable Neurological: Unremarkable Lymphatics: Unremarkable Physical Examination - Physical Exam General: Alert, In no apparent distress, Oriented x3, Cooperative HEENT: Atraumatic, PERRLA, Mucous membr. moist/pink, EOMI, Sclerae nonicteric Neck: Supple, 2+ carotid pulse no bruit, No LAD, Without JVD or thyroid abnormality Respiratory: Clear to auscultation bilaterally, Normal air movement Cardiovascular: No edema, Regular rate/rhythm, Normal S1 S2 Capillary refill: <2 Seconds Gastrointestinal: Normal bowel sounds, Soft and benign, Non-distended, No tenderness Musculoskeletal: No clubbing, No swelling, No tenderness Integumentary: No rashes, No significant lesion Neurological: Normal speech, Normal tone, Normal affect Lymphatics: No axilla or inguinal lymphadenopathy - Studies Laboratory Data (last 24 hrs) 07/16/22 15:43: Sodium 136, Potassium 4.8, BUN 19 H, Creatinine 1.24 H, Glucose 127 H 07/16/22 14:00: WBC 7.50, Hgb 10.7 L, Hct 32.8 L, Plt Count 563 H Assessment and Plan - Plan --Atypical chest pain. D-dimer pending. Troponin elevated. We will continue to trend troponin levels. Echocardiogram pending to assess cardiac functions and structures. Cardiology consulted. Telemetry to monitor for any significant arrhythmia. 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 --DM2. BS monitoring with sliding scale insulin. -- Rheumatoid arthritis. Continue home medication. --Hypertension. Stable. We will manage BP with hydralazine as needed. --CKD 3B. Stable. We will hold off on ARB and avoid nephrotoxins. We will continue to monitor renal functions. --Anemia of chronic disease. H&H stable. We will continue to monitor hemoglobin and transfuse if less than 7.0. --Nicotine dependence. Patient counseled on tobacco cessation and placed on nicotine patch. --DVT prophylaxis with Lovenox subQ. Discharge Plan: Home Plan to discharge in: 48 Hours - Advance Directives Does patient have a Living Will: No Does patient have a Durable POA for Healthcare: No - Code Status/Comfort Care Code Status Assessed: Yes Physician Review: Patient Assessed, Agree with Above Assessment and Plan Critical Care: No
[2022-07-16] MEDS ORDERED: GLUCAGON 1 MG/VIAL IM PRN (17:30)
[2022-07-16] MEDS ORDERED: HYDRALAZINE HCL 20 MG/ML VIAL IV PRN (17:34)
[2022-07-16] MEDS ORDERED: D10W 250 ML BAG IV PRN (17:34)
[2022-07-16] MEDS: ENOXAPARIN 40 MG/0.4 ML SQ SCH (18:00)
[2022-07-16] MEDS: CEFTRIAXONE 1,000 MG in NA CHLORIDE 0.9% 50 ML IVPB SCH (18:00)
[2022-07-16 18:40] LABS: Magnesium 2.1 mg/dL (1.6-2.4); Phosphorus 3.4 mg/dL (2.5-4.9); Thyroid Stimulating Hormone 0.023 uIU/mL (0.358-3.740)
[2022-07-16] MEDS: INSULIN -REGULAR HUMAN 50 UNIT/0.5 ML ML SQ SCH (20:54)
[2022-07-16 21:42] VITALS: BMI 28.8
[2022-07-17 03:29] LABS: Absolute Lymphocytes (CBC) 1.4 K/uL (0.7-4.9); Hematocrit 27.8 % (36.0-45.0); Lymphocytes % 20.8 % (15.3-44.8); MCV 87.8 fL (80-100); MPV 8.4 fL (7.6-11.3); RBC Red Blood Cell Count 3.17 M/uL (3.86-4.86)
[2022-07-17 03:52] LABS: Potassium 3.9 mmol/L (3.5-5.1)
--- NOTE | 2022-07-17 07:12 | P.PN ---
Date of Service: 07/17/22 Subjective: Feels better than yesterday reports chest pain is mostly gone after medication overnight Ambulatory w/o assistance ROS: 10 point ROS as noted above, otherwise negative Physical Exam: GEN: Alert, oriented, NAD HEENT: Normal conjunctiva, sclera anicteric CV: Regular rate and rhythm, no edema Pulm: Nonlabored respirations on room air ABD: Soft, nontender, nondistended Neuro: Normal speech, normal affect Problem List: NSTEMI DM2, non-insulin dependent Rheumatoid arthritis Hypertension CKD 3B Nicotine dependence Anemia of chronic disease Cardiology consulted troponin elevated, stable recommends cardiac cath today for NSTEMI Echo pending VIVIAN avoid nephrotoxins monitor renal function d-dimer elevated no hypoxia, no tachycardia, no clinical findings of DVT holding off on CTA, as patient has VIVIAN and will be receiving contrast from cath1 Continue monitoring sliding scale insulin continue home medication continue to monitor renal function counseled on tobacco cessation - on nicotine patch VTE: Lovenox subQ Code: Full Dispo: home, ~24hrs pending cath
[2022-07-17] MEDS: INSULIN -REGULAR HUMAN 50 UNIT/0.5 ML ML SQ SCH ×4 (07:30→21:00)
[2022-07-17] MEDS: HYDROCODONE/APAP 5/325 MG TAB PO PRN ×3 (07:53→21:59)
[2022-07-17] MEDS: CEFTRIAXONE 1,000 MG in NA CHLORIDE 0.9% 50 ML IVPB SCH (07:54)
[2022-07-17] MEDS: ENOXAPARIN 40 MG/0.4 ML SQ SCH (07:54)
[2022-07-17] MEDS: ASPIRIN 81 MG CHEWABLE TABLET PO SCH (07:54)
[2022-07-17] MEDS ORDERED: PNEUMOCOCCAL VACCINE 0.5 ML IMVAC ONE (08:00)
[2022-07-17] MEDS ORDERED: POTASSIUM CL SA 10 MEQ TAB PO ONE (09:00)
[2022-07-17] MEDS ORDERED: LIDOCAINE 1% 20 ML MDV ONE (11:38)
[2022-07-17] MEDS ORDERED: HEPA 1000U/500MLS 2,000 UNIT/1,000 ML BAG IV ONE (11:38)
[2022-07-17] MEDS ORDERED: HEPARIN 5000 UNIT/ML 1 ML VIAL ONE (11:40)
[2022-07-17] MEDS ORDERED: ASPIRIN 325 MG TAB ONE (11:40)
[2022-07-17] MEDS ORDERED: CLOPIDOGREL 75 MG TABLET ONE (11:40)
[2022-07-17] MEDS ORDERED: MIDAZOLAM HCL 2 MG/2 ML INJ ONE (11:40)
[2022-07-17] MEDS ORDERED: FENTANYL CITR 100 MCG/2 ML ONE (11:40)
[2022-07-17] MEDS ORDERED: VERAPAMIL HCL 10 MG/4 ML VIAL IV ONE (11:40)
[2022-07-17] MEDS ORDERED: HEPARIN 10,000 UNIT/10 ML VIAL IV ONE (11:41)
[2022-07-17] MEDS ORDERED: NA CHLORIDE 0.9% 500 ML ONE (11:41)
[2022-07-17] MEDS ORDERED: TICAGRELOR 90 MG TABLET PO ONE (11:41)
[2022-07-17] MEDS ORDERED: ATROPINE SULF 1 MG/10 ML SYR IV ONE (11:41)
--- NOTE | 2022-07-17 13:22 | EKG ---
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
--- NOTE | 2022-07-17 13:31 | CON ---
Date of Consultation: 07/17/2022 Reason For Consultation: Non-STEMI. History Of Present Illness: This is an 81-year-old female with history of hypertension, diabetes, rh eumatoid arthritis, presented with chest pain, pressure like, left-sided, radiates to the shoulder. Upon evaluation in the emergency room, troponins were checked and they were elevated close to 200 ran ge. She denies having any resting chest pain. No nausea, vomiting, or diaphoresis. No shortness of breath. Past Medical History: Rheumatoid arthritis, hypertension, diabetes. Medications: Refer to reconciliation sheet for detailed list. Allergies: SHE IS ALLERGIC TO CODEINE. Family History: No premature coronary artery disease or cancer. Social History: She does not smoke or drink. Does not use drugs. Review of Systems: All systems reviewed and they were negative except what mentioned in HPI. Physical Examination: Vital Signs: Reviewed. Head and Neck: Pupils are equal, reactive to light. Intact eye movements. No JVD. No cervical lym phadenopathy. Neck is supple. Thyroid is not enlarged. Lungs: Clear to auscultation bilaterally. No rhonchi, wheezing, or crackles. No accessory muscle u se. Heart: Regular rate and rhythm. No extra sounds. Abdomen: Soft, nontender. Bowel sounds positive. No organomegaly. No masses or hernia. No rigidi ty or rebound. Extremities: No edema, clubbing, or cyanosis. Intact pulses. Skin: No rash. Neurologic: Alert, awake, oriented x3. No acute focal deficits appreciated. Investigations: Troponin peaked at 193. Creatinine is 1.1, BUN 22. Assessment And Recommendations: 1.Non-ST elevation myocardial infarction. She has significant risk factors including diabetes, hype rtension, and age as well as the presentation with a positive troponin. Recommend coronary angiogram to further define the coronary anatomy and percutaneous coronary intervention as needed. 2.Hypertension, which is controlled. Continue current management. 3.Diabetes. Continue current management and recommend to add Lipitor 40 mg at bedtime. SR/MODL Voice ID: [id number] Report ID: [id number]
--- NOTE | 2022-07-17 13:40 | OP ---
Date of Procedure: 07/17/2022 Surgeon: MELVIN RAYA Procedures Performed: 1.Selective coronary angiogram. 2.Left heart catheterization. 3.PCI of severe ostial RCA stenosis, which is a culprit for her UT. I used 4.0 x 12 mm Synergy drug -eluting stent. Indication: Non-ST elevation myocardial infarction. Access: Right radial artery 6-South African closed with TR band. Complications: None. Bleeding: Less than 20 mL. Anesthesia: Total amount of contrast used 110 mL. Description Of Procedure: After risks, benefits, alternatives were explained, the patient agreed to procedure and signed informed consent. The patient was brought into the cardiac catheterization [facility], prepped and draped in the usual sterile fashion. Then, I accessed right radial artery using pediatric micropuncture, placed 6-South African Slender sheath, and took 5-South African [place] 4.0 catheter into th e aortic root, engaged left main and right coronary artery, took standard views. Then, catheter was pushed over the wire into the LV, measured LVEDP. Pullback did not record any gradient. Then, gave systemic heparin to assure ACT level above 250 throughout the procedure and then loaded with 180 mg o f Brilinta and she received aspirin already in the morning. Then, I took a 6-South African JR4 guide into t he aortic root and engaged the RCA and took a Run-Through wire into the RCA, placed it distally. The lesion was pre-dilated using a 4.0 balloon, expanded very well and then placed 4.0 x 12 mm Synergy d rug-eluting stent with good expansion and no complications. Then, final angiogram was satisfactory. I removed the guide and the sheath, and placed TR band with good hemostasis. Findings: 1.Left main; very large and normal. 2.LAD; large with mid focal 30% stenosis. Diagonal branches are normal. The rest of LAD appears no rmal. 3.Left circumflex; large, dominant. It has very high OM branch, appears normal and then OM2 appears normal and then the circ itself has about 30% in the mid segment. 4.RCA; ostial 80% stenosis, culprit for the UT, status post successful PCI as above. 5.LVEDP borderline at 11 mmHg. Conclusion: 1.Severe ostial RCA stenosis, status post successful PCI as above. 2.Mild coronary artery disease elsewhere. Recommendation: Aspirin, Plavix, and statin. SR/MODL Voice ID: [id number] Report ID: [id number]
--- NOTE | 2022-07-17 14:03 | ECHO ---
HEIGHT: 5 ft 7 in WEIGHT: 183 lb 14.4 oz DATE OF STUDY: 07/17/[address]: Glen Collins 2-DIMENSIONAL: YES M.MODE: YES DOPPLER: YES COLOR FLOW: YES TDS: PORTABLE: YES DEFINITY: BUBBLE STUDY: DIAGNOSIS: ACUTE CORONARY SYNDROME CARDIAC HISTORY: CATHERIZATION: SURGERY: PROSTHETIC VALVE: PACEMAKER: MEASUREMENTS (cm) DIASTOLIC (NORMALS) SYSTOLIC (NORMALS) IVSd 1.1 (0.6-1.2) LA Diam 4.5 (1.9-4.0) LVEF 73% LVIDd 3.1 (3.5-5.7) LVIDs 1.8 (2.0-3.5) %FS 41% LVPWd 1.3 (0.6-1.2) Ao Diam 2.8 (2.0-3.7) 2 DIMENSIONAL ASSESSMENT: RIGHT ATRIUM: NORMAL LEFT ATRIUM: ENLARGED RIGHT VENTRICLE: NORMAL LEFT VENTRICLE: LEFT VENTRICULAR HYPERTROPHY TRICUSPID VALVE: MILD TRICUSPID REGURGITATION MITRAL VALVE: CALCIFIED MITRAL VALVE PULMONIC VALVE: NORMAL AORTIC VALVE: NORMAL PERICARDIAL EFFUSION: NONE AORTIC ROOT: NORMAL LEFT VENTRICULAR WALL MOTION: NORMAL DOPPLER/COLOR FLOW: SEE BELOW COMMENTS: 1. NORMAL LEFT VENTRICULAR EJECTION FRACTION GREATER THAN 60% 2. NORMAL WALL MOTION 3. MILD CONCENTRIC LEFT VENTRICULAR HYPERTROPHY 4. MODERATE DIASTOLIC DYSFUNCTION 5. ELEVATED FILLING PRESSURE 6. SEVERELY CALCIFIED MITRAL VALVE WITH SEVERE MITRAL STENOSIS 7. SEVERE LEFT ATRIAL ENLARGEMENT TECHNOLOGIST: HUBERT GALLARDO
[2022-07-18] MEDS: HYDROCODONE/APAP 5/325 MG TAB PO PRN (04:38)
[2022-07-18 06:23] LABS: Potassium 4.2 mmol/L (3.5-5.1)
[2022-07-18] MEDS: INSULIN -REGULAR HUMAN 50 UNIT/0.5 ML ML SQ SCH ×4 (07:30→21:00)
[2022-07-18] MEDS ORDERED: CLOPIDOGREL 75 MG TABLET PO ONE (07:58)
--- NOTE | 2022-07-18 08:32 | P.PN ---
Date of Service: 07/18/22 Subjective: Feels much better than yesterday continues with chest pain, improved, but not fully resolved no fever/chills ROS: 10 point ROS as noted above, otherwise negative Physical Exam: GEN: Alert, oriented, NAD HEENT: Normal conjunctiva, sclera anicteric CV: Regular rate and rhythm, no edema Pulm: Nonlabored respirations on room air ABD: Soft, nontender, nondistended Neuro: Normal speech, normal affect Problem List: NSTEMI DM2, non-insulin dependent Rheumatoid arthritis Hypertension CKD 3B Nicotine dependence Anemia of chronic disease Cardiology consulted troponin elevated, stable cath 07/17 - 80% stenosis, now s/p PCI unclear if received/loaded with antiplatelet last night discussed with cardiology, load with 600mg plavix today, continue 75mg daily improved, but chest pain persists, dild have elevated d-dimer; discussed with cardiology recommended CTA to r/o PE Echo: severe mitral stenosis, diastolic dysfunction will need valve addressed in near future - f/u with Dr. Carr VIVIAN improved avoid nephrotoxins monitor renal function, now s/p cath and CTA check renal function in AM d-dimer elevated no hypoxia, no tachycardia, no clinical findings of DVT CTA - negative for a pulmonary embolism continue home medication continue to monitor renal function counseled on tobacco cessation - on nicotine patch VTE: Lovenox subQ Code: Full Dispo: home, ~24hrs
--- NOTE | 2022-07-18 09:48 | RAD REPORT ---
EXAM DESCRIPTION: CT - Chest For Pe Angio - 07/18/2022 9:21 am CLINICAL HISTORY: Chest pain COMPARISON: 2021 TECHNIQUE: Dynamically enhanced axial 3 mm thick images of the chest were obtained during administra tion of 100 mL Isovue 370 IV contrast. Coronal and oblique reconstruction images were generated and r eviewed. Exam utilizes a protocol for optimal evaluation of pulmonary arterial tree. Maximum intensity projections 3D imaging was utilized All CT scans are performed using dose optimization technique as appropriate and may include automated exposure control or mA/KV adjustment according to patient size. FINDINGS: A pulmonary embolus is not seen. A thoracic aortic aneurysm is not noted. A pleural effusion is not seen. A pericardial effusion is not seen. A lung consolidation is not present. Coronary arterial calcifications. Cardiomegaly Enlarged main pulmonary artery may indicate pulmonary arterial hypertension IMPRESSION: Negative for a pulmonary embolism.
[2022-07-18] MEDS: ASPIRIN 81 MG CHEWABLE TABLET PO SCH (10:07)
[2022-07-18] MEDS: ENOXAPARIN 40 MG/0.4 ML SQ SCH (10:08)
[2022-07-18] MEDS: ACETAMINOPHEN 325 MG TABLET PO PRN ×2 (10:47→18:21)
--- NOTE | 2022-07-18 12:55 | P.DS ---
Admission Date: 07/17/22 Discharge Date: 07/19/22 Disposition: ROUTINE DISCHARGE Discharge Condition: GOOD Reason for Admission: Atypical chest pain, elevated troponin Consultations: Cardiology - Dr. Carr Brief History of Present Illness: Patient is an 81-year-old female with a past medical history significant for rheumatoid arthritis, DM 2 who presents with complaint of chest pain located in the left anterior axillary line. Patient reported that pain has been ongoing for the past 2 months. Patient reported that she initially managed pain with pain medication for the first month but pain has not been responding to pain medication in the last 1 month.. Patient report rated pain as 10/10 in severity and described pain as aching in quality. Patient reported associated signs and symptoms of cough. Patient denies any other signs and symptoms. Symptoms are aggravated or relieved by nothing. Patient decided to present to the hospital for medical evaluation. Hospital Course: Problem List: NSTEMI DM2, non-insulin dependent Rheumatoid arthritis Hypertension CKD 3B Nicotine dependence Anemia of chronic disease Presented with chest pain, found to have NSTEMI with elevated troponins. Remained stable around 180-200. Dr. Carr was consulted and patient underwent cardiac catheterization, found to have 80% stenosis and underwent successful PCI. She was also noted to have an elevated d-dimer. CTA chest was negative for acute process, negative for PE. She was treated with aspirin, plavix, atorvastatin, and metoprolol. Her metformin and losartan were held secondary to low-normal blood pressure, and avoidance of worsening renal function. Her renal function remained stable and at baseline. Advised to hold metformin for 2 more days. Hold losartan. Monitor blood pressure daily. Follow up with PCP within 3-5 days. Recommend repeat BMP to monitor renal function. She also reported some epigastric/ LUQ pain with eating and with some mild tenderness concerning for a gastric ulcer. Pepcid prescribed to help. Follow up with PCP - Consideration for GI +/- EGD if no improvement or complications. Follow up with Cardiology in a few weeks. Vital Signs/Physical Exam: Temp Pulse Resp BP Pulse Ox 97.6 F 101 H 16 105/46 L 96 07/18/22 12:00 07/18/22 12:00 07/18/22 12:00 07/18/22 12:00 07/18/22 12:00 Physical Exam: GEN: Alert, oriented, NAD HEENT: Normal conjunctiva, sclera anicteric CV: Regular rate and rhythm, no edema Pulm: Nonlabored respirations on room air ABD: Soft, mild epigastric tenderness, nondistended Neuro: Normal speech, normal affect Laboratory Data at Discharge: WBC 6.60 K/uL (4.3-10.9) 07/17/22 02:24 Hgb 9.2 g/dL (12.0-15.0) L D 07/17/22 02:24 Hct 27.8 % (36.0-45.0) L 07/17/22 02:24 Plt Count 401 thou/uL (152-406) D 07/17/22 02:24 Sodium 136 mmol/L (136-145) 07/18/22 05:51 Potassium 4.2 mmol/L (3.5-5.1) 07/18/22 05:51 BUN 21 mg/dL (7-18) H 07/18/22 05:51 Creatinine 1.08 mg/dL (0.55-1.02) H 07/18/22 05:51 Glucose 105 mg/dL (74-106) 07/18/22 05:51 Phosphorus 3.4 mg/dL (2.5-4.9) 07/16/22 18:06 Magnesium 2.1 mg/dL (1.6-2.4) 07/16/22 18:06 Triglycerides 60 mg/dL (<150) 07/16/22 18:06 Cholesterol 110 mg/dL (<200) 07/16/22 18:06 HDL Cholesterol 46 mg/dL (40-60) 07/16/22 18:06 Cholesterol/HDL Ratio 2.39 07/16/22 18:06 Home Medications: Aspirin [Aspirin Regimen] 81 mg PO DAILY 06/26/22 Folic Acid 1 mg PO DAILY 06/26/22 Losartan Potassium 25 mg PO DAILY 06/26/22 Metformin ER [Glucophage ER*] 500 mg PO TID 06/26/22 Methotrexate Sodium [Methotrexate] 4 tab PO 1X 06/26/22 Atorvastatin Calcium [Lipitor] 40 mg PO BEDTIME 30 Days #30 tab 07/19/22 Clopidogrel Bisulfate [Plavix*] 75 mg PO DAILY 30 Days #30 tab 07/19/22 Famotidine [Pepcid*] 20 mg PO DAILY 30 Days #30 tab 07/19/22 Metoprolol Tartrate [Lopressor*] 12.5 mg PO BID 30 Days #60 tab 07/19/22 New Medications: Atorvastatin Calcium [Lipitor] 40 mg PO BEDTIME 30 Days #30 tab Metoprolol Tartrate [Lopressor*] 12.5 mg PO BID 30 Days #60 tab Famotidine [Pepcid*] 20 mg PO DAILY 30 Days #30 tab Clopidogrel Bisulfate [Plavix*] 75 mg PO DAILY 30 Days #30 tab Physician Discharge Instructions: Presented with chest pain, found to have NSTEMI with elevated troponins. Remained stable around 180-200. Dr. Carr was consulted and patient underwent cardiac catheterization, found to have 80% stenosis and underwent successful PCI. She was also noted to have an elevated d-dimer. CTA chest was negative for acute process, negative for PE. She was treated with aspirin, plavix, atorvastatin, and metoprolol. Her metformin and losartan were held secondary to low-normal blood pressure, and avoidance of worsening renal function. Her renal function remained stable and at baseline. Advised to hold metformin for 2 more days. Hold losartan. Monitor blood pressure daily. Follow up with PCP within 3-5 days. Recommend repeat BMP to monitor renal function. She also reported some epigastric/ LUQ pain with eating and with some mild tenderness concerning for a gastric ulcer. Pepcid prescribed to help. Follow up with PCP - Consideration for GI +/- EGD if no improvement or complications. Follow up with Cardiology in a few weeks. Followup: NONE,NONE [Primary Care Provider] - Time spent managing pt's care (in minutes): 45
--- NOTE | 2022-07-18 14:07 | PN ---
Date of Progress Note: 07/18/2022 Subjective: Seen at bedside. Doing clinically well. Subjective: Had a CTA of the lungs, PE protocol was negative for PE, status post PCI of ostial RCA, which was the culprit for her UT. No chest pain today. Review of Systems: No chest pain, shortness of breath, orthopnea, cough. No nausea, vomiting, diarrhea. All other syst ems reviewed are negative. Physical Examination: Vital Signs: Reviewed. Head and Neck: Pupils are equal, reactive to light. Intact eye movements. No JVD. No cervical lym phadenopathy. Neck is supple. Thyroid is not enlarged. Lungs: Clear to auscultation bilaterally. No rhonchi, wheezing, or crackles. No accessory muscle u se. Heart: Regular rate and rhythm. No extra sounds. Abdomen: Soft, nontender. Bowel sounds positive. No organomegaly. No masses or hernia. No rigidi ty or rebound. Extremities: No edema, clubbing, or cyanosis. Intact pulses. Skin: No rash. Neurologic: Alert, awake, oriented x3. No acute focal deficits appreciated. Investigations: BUN 21, creatinine 1.08. Hemoglobin 9.2. Assessment/recommendation: 1.Non-ST elevation myocardial infarction, ostial right coronary artery and was severely stenosed, st atus post successful percutaneous coronary intervention. She is doing well. She received Brilinta y , but she was loaded with Plavix today 600 mg and to continue 75 mg daily and aspirin 81 mg d aily. CTA PE protocol was negative for pulmonary embolism. 2.Dyslipidemia. Continue atorvastatin 40 mg at bedtime. 3.Hypertension. Blood pressure is controlled. Patient can be released from cardiology standpoint to follow up with me in the office in 4 weeks. SR/MODL Voice ID: [id number] Report ID: [id number]
[2022-07-18] MEDS ORDERED: ATORVASTATIN 40 MG TAB PO SCH (21:00)
[2022-07-19 04:30] LABS: Potassium 4.1 mEq/L (3.5-5.1)
[2022-07-19] MEDS ORDERED: METOPROLOL TAR 25 MG TAB PO SCH (06:39)
[2022-07-19] MEDS: INSULIN -REGULAR HUMAN 50 UNIT/0.5 ML ML SQ SCH (07:30)
[2022-07-19] MEDS: ASPIRIN 81 MG CHEWABLE TABLET PO SCH (08:43)
[2022-07-19] MEDS: ACETAMINOPHEN 325 MG TABLET PO PRN (08:43)
[2022-07-19 08:53] VITALS: BP 94/43; TEMP 97.4
[2022-07-19] MEDS: ENOXAPARIN 40 MG/0.4 ML SQ SCH (09:00)
[2022-07-19] MEDS ORDERED: CLOPIDOGREL 75 MG TABLET PO SCH (09:00)
[2022-07-19 09:41] VITALS: O2SAT 99
== END 2022-07-19 10:50 | disposition home or self-care (01) | DRG 247 ==
LOC: ER 13:17 → ERHOLD 16:55 → 2ND 19:29 → OBSVTOIN 07-17 12:10
PROVIDERS: ADMIT Hospitalist; ATTEND Hospitalist
PROC: 027034Z Dilation of Coronary Artery, One Artery with Drug-eluting Intraluminal Device, Percutaneous Approach (ICD-10-PCS; principal; 2022-07-17)
PROC: 4A023N7 Measurement of Cardiac Sampling and Pressure, Left Heart, Percutaneous Approach (ICD-10-PCS; 2022-07-17)
PROC: B2111ZZ Fluoroscopy of Multiple Coronary Arteries using Low Osmolar Contrast (ICD-10-PCS; 2022-07-17)
DX: I21.4 Non-ST elevation (NSTEMI) myocardial infarction (principal); N17.9 Acute kidney failure, unspecified; I12.9 Hypertensive chronic kidney disease with stage 1 through stage 4 chronic kidney disease, or unspecified chronic kidney disease; N18.32 Chronic kidney disease, stage 3b; E11.22 Type 2 diabetes mellitus with diabetic chronic kidney disease; D63.1 Anemia in chronic kidney disease; K25.9 Gastric ulcer, unspecified as acute or chronic, without hemorrhage or perforation; M06.9 Rheumatoid arthritis, unspecified; I25.10 Atherosclerotic heart disease of native coronary artery without angina pectoris; F17.210 Nicotine dependence, cigarettes, uncomplicated; Z88.5 Allergy status to narcotic agent; Z79.02 Long term (current) use of antithrombotics/antiplatelets; Z90.49 Acquired absence of other specified parts of digestive tract; Z79.82 Long term (current) use of aspirin; Z79.84 Long term (current) use of oral hypoglycemic drugs; Z79.899 Other long term (current) drug therapy; Z20.822 Contact with and (suspected) exposure to COVID-19
CPT/HCPCS: 36415; 71045; 71275; 80048; 80061; 81003; 82947; 83036; 83735; 84100; 84439; 84443; 84484; 85025; 85347; 85379; 92928; 93005; 93306; 93458; 96372; 96374; 99285; C1725; C1893; G0378; J0461; J1644; J1650; J1815; J2001; J2250; J3010; J7040; Q9967; U0003

== ENCOUNTER → 2024-02-27 | Day surgery (SDC) | payer MEDICARE ==
[~2024-02-27] MED LIST: EPHEDRINE SULF 50 MG/ML VIAL ONE; FENTANYL CITR 100 MCG/2 ML ONE; HYDROCODONE/APAP 7.5/325 MG TAB PO PRN; LIDOCAINE 1% MPF 5 ML VIAL ONE; LIDOCAINE HCL/EPINEPHRINE 20 ML MDV ONE; MIDAZOLAM HCL 2 MG/2 ML INJ ONE; ONDANSETRON 4 MG/2 ML VIAL ONE; dexAMETHasone 4 MG/ML VIAL ONE; propofoL 200 MG/20 ML VIAL IV ONE
[2024-02-27 07:11] LABS: Absolute Basophils 0.1 K/uL (0-0.5); Absolute Eosinophils 0.2 K/uL (0-0.5); Absolute Lymphocytes (CBC) 1.1 K/uL (0.7-4.9); Absolute Monocytes 0.6 K/uL (0.1-1.3); Absolute Neutrophil 6.1 K/uL (1.8-8.0); Basophils % 1.2 % (0-1.3); Eosinophils % 2.5 % (0-4.4); Hematocrit 33.8 % (36.0-45.0); Hemoglobin 10.9 g/dL (12.0-15.0); Lymphocytes % 13.3 % (15.3-44.8); MCH 27.7 pg (27.0-35.0); MCHC 32.2 g/dL (32.0-36.0); MCV 86.2 fL (80-100); MPV 8.9 fL (7.6-11.3); Monocytes % 7.1 % (3.3-12.3); Neutrophils % 75.9 % (41.7-73.7); Nucleated Red Blood Cells % 0.1 % (0-0); Platelets 285 thou/uL (152-406); RBC Red Blood Cell Count 3.92 M/uL (3.86-4.86)
[2024-02-27 07:14] LABS: Protime INR 1.07
[2024-02-27 07:19] LABS: Anion Gap 10.1 mEq/L (5.0-15.0); Potassium 4.1 mEq/L (3.5-5.1)
[2024-02-27] MEDS: CEFAZOLIN SODIUM 2 GM/VIAL ONE (08:04)
[2024-02-27] MEDS: NA CHLORIDE 0.9% 1,000 ML ONE (08:05)
--- NOTE | 2024-02-27 08:23 | RAD REPORT ---
EXAMINATION: ONE VIEW CHEST XR CLINICAL INDICATION: Female, 83 years old.,PRE-OP. Hypertension TECHNIQUE: Frontal chest projection is submitted. Examination is limited by patient positioning and t echnique. COMPARISON: 07/16/2022 FINDINGS: The lungs are well inflated and clear. No pneumothorax or sizable effusion. The heart is upper limit of normal in size. Tortuosity of the thoracic aorta again seen. IMPRESSION: No acute intrathoracic abnormalities. Stable findings as above.
--- NOTE | 2024-02-27 10:05 | P.OP ---
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 General anesthesia began. Patient prepped and draped in usual sterile fashion. Marcaine 0.5% obtained locally for postop pain control. 15 blade used to make a 3 cm incision over the mass in the mid lateral neck. Subcutaneous tissue divided and bleeding controlled cautery. Sternocleidomastoid muscle identified and . Deep to the muscle was a enlarged lymph node which was very mushy. Approximately a 2 cm segment of this enlarged lymph node was removed. Specimen was sent to pathology fresh. Wound irrigated bleeding controlled with cautery. Surgicel placed for minimal oozing. 3-0 chromic used to approximate subcutaneous tissue and close skin. Sterile dressing applied. Patient awakened and taken to recovery room in good general condition. CC: Dr. Waldron's office
--- NOTE | 2024-02-27 14:10 | EKG ---
Test Date: 2024-02-27 Test Time: 07:17:26 Executive Vp: INDIGO MEASUREMENT RESULTS: Intervals: Rate: 77 ME: 178 QRSD: 80 QT: 416 QTc: 470 [place]: P: 68 ME: 178 QRS: 47 T: 102 INTERPRETIVE STATEMENTS: Normal sinus rhythm Possible Left atrial enlargement T wave abnormality, consider lateral ischemia Prolonged QT Abnormal ECG Compared to ECG 07/16/2022 14:36:00 T-wave abnormality now present Possible ischemia now present Prolonged QT interval now present Electronically Signed On 02-27-24 14:09:25 CDT by Mich Luna
[2024-02-27 14:26] VITALS: O2SAT 99
[2024-02-27 14:27] VITALS: BP 116/55; TEMP 97
== END | disposition home or self-care (01) ==
LOC: OR 06:17
PROVIDERS: ATTEND Surgery
PROC: 07B10ZX Excision of Right Neck Lymphatic, Open Approach, Diagnostic (ICD-10-PCS; principal; 2024-02-27 09:15)
DX: C85.11 Unspecified B-cell lymphoma, lymph nodes of head, face, and neck (principal)
CPT/HCPCS: 38500; 93005; 85025; 80048; 36415; 85610; 82947; 88305; 85730; 71045; J2704; J1100; J2003; J2250; J3010; J2405; J7030